=== PATIENT | male | born 1985 | race Caucasian/White ===

== ENCOUNTER 2016-09-23 16:49 | Emergency (ER) | payer MEDICAID, MEDICARE ==
[~2016-09-23] VITALS: Ht 182.9 cm; Wt 145.0 kg
[~2016-09-23 16:49] MED LIST: AMOX500T PO; AMOX875T PO; FLUT1SPR9 EACH NARE; HYDR-3533 PO; PROMSYP39 PO
[2016-09-23 16:51] VITALS: BP 153/99; PULSE 72; RESP 24; TEMP 97.8; O2SAT 99
[2016-09-23 17:00] VITALS: BP 133/77; PULSE 74; RESP 18; TEMP 97.8; O2SAT 98
[2016-09-23 17:11] VITALS: RESP 18; O2SAT 98
[2016-09-23] MEDS ORDERED: ONDANSETRON HCL 4 MG/2 ML VIAL IV ONE (17:15)
[2016-09-23] MEDS ORDERED: KETOROLAC TROMETHAMINE 30 MG/ML (IVP) VIAL IV PUSH ONE (17:15)
[2016-09-23] MEDS ORDERED: SODIUM CHLORIDE 0.9% FLUSH 10 ML FLUSH IVF PRN (17:15)
[2016-09-23 17:17] VITALS: BP_SYST 136; BP_SYST 141; BP_DIAS 87; BP_DIAS 96; PULSE 74; RESP 18; O2SAT 98
[2016-09-23 17:23] LABS: AUTOMATED NEUTROPHIL # 6.4 TH/MM3 (1.8-7.7); BASOPHIL # 0.1 TH/MM3 (0-0.2); BASOPHIL % 0.9 % (0.0-2.0); EOSINOPHIL # 0.2 TH/MM3 (0-0.4); EOSINOPHIL % 1.6 % (0.0-4.0); HEMATOCRIT 45.4 % (39.0-51.0); HEMO FLAGS DIFF FINAL; LYMPH % 27.4 % (9.0-44.0); LYMPHOCYTE # 2.8 TH/MM3 (1.0-4.8); MEAN CELL VOLUME 89.8 FL (80.0-100.0); MEAN CORPUSCULAR HEMOGLOBIN 29.6 PG (27.0-34.0); MONO % 7.5 % (0.0-8.0); NEUT % 62.6 % (16.0-70.0); PLATELET COUNT 229 TH/MM3 (150-450); RED BLOOD COUNT 5.06 MIL/MM3 (4.50-5.90); RED CELL DISTRIBUTION WIDTH 13.2 % (11.6-17.2); WHITE BLOOD COUNT 10.2 TH/MM3 (4.0-11.0)
--- NOTE | 2016-09-23 17:37 | RADRPT ---
EXAM DATE/TIME: 09/23/2016 17:22 [facility] COMPARISON: No previous studies available for comparison. INDICATIONS : Chest pain. MEDICAL HISTORY : None. SURGICAL HISTORY : None. ENCOUNTER: Initial ACUITY: 4 - 6 days PAIN SCORE: 5/10 LOCATION: lower center chest FINDINGS: There is a suboptimal inspiration. Minimal increased perihilar interstitial markings are noted consi stent with possible minimal congestion or crowding of the pulmonary vasculature related to suboptimal inspiration. Clinical correlation is recommended. No focal alveolar consolidation is noted. CONCLUSION: 1. Poor inspiration. 2. Minimal increased perihilar interstitial markings raising the possibility of minimal congestion ve rsus crowding of the pulmonary vasculature related to the suboptimal inspiration. Clinical correlati on is recommended. Abdiel Duncan MD on September 23, 2016 at 17:22 Board Certified Radiologist. This report was verified electronically.
[2016-09-23 17:46] LABS: ALT (GPT) 39 U/L (12-78); ANION GAP 6 MEQ/L (5-15); AST (GOT) 20 U/L (15-37); BICARBONATE 31.8 MEQ/L (21.0-32.0); BLOOD UREA NITROGEN 12 MG/DL (7-18); CHLORIDE 101 MEQ/L (98-107); GLOMERULAR FILTRATION RATE 106 ML/MIN (>89); POTASSIUM 4.3 MEQ/L (3.5-5.1); SODIUM (NA) 139 MEQ/L (136-145)
[2016-09-23 17:50] LABS: ALKALINE PHOSPHATASE 72 U/L (45-117); TOTAL BILIRUBIN ADULT 0.2 MG/DL (0.2-1.0)
--- NOTE | 2016-09-23 18:10 | PD ---
HPI Chief Complaint: Chest Pain Time Seen by Provider: 17:04 Travel History International Travel<30 days: No Contact w/Intl Traveler<30days: No Traveled to known affect area: No History of Present Illness HPI This is a 30-year-old male who presents to the emergency department with 1 week of chest discomfort described as a band across the front of his chest associated with nausea and some back pain. He says that he was working one week ago lifting heavy objects when he felt a pop in his back and he thought he herniated a disc. He reports that subsequently he developed this chest discomfort associated with some nausea. He says the chest pain is been intermittent initially but has been fairly constant over the past 24 hours. It is worse when he exerts himself and worse when he takes a deep breath. He denies any recent long trips or car rides. He says his father has had multiple heart attacks but he doesn't know what age he had his first heart attack. He denies smoking. PFSH Past Medical History Bipolar Disorder: Yes Anxiety: Yes Cardiovascular Problems: Yes Diminished Hearing: No Genitourinary: Yes (BLADDER SURGERY) Hypertension: Yes Musculoskeletal: Yes (CHRONIC BACK PAIN DDD BULGING DISCS) Psychiatric: Yes (BIPOLAR) Seizures: Yes (LAST 2 YEARS AGO.) Tetanus Vaccination: < 5 Years Influenza Vaccination: Yes Past Surgical History Genitourinary Surgery: Yes (BLADDER SURGERY DUE TO THICKENING OF WALL 2002) Social History Alcohol Use: Yes (OCCASIONAL) Tobacco Use: No Substance Use: No Allergies-Medications (Allergen,Severity, Reaction): Coded Allergies: Tramadol (Verified Adverse Reaction, Intermediate, SOB, TACHYCARDIA, PALPITATIONS, 09/23/16) Reported Meds & Prescriptions Reported Meds & Active Scripts Active No Active Prescriptions or Reported Medications Review of Systems Except as stated in HPI: all other systems reviewed are Neg Physical Exam Narrative GENERAL: Morbidly obese, disheveled SKIN: Focused skin assessment warm and dry. HEAD: Atraumatic. Normocephalic. EYES: Pupils equal and round. No injection or drainage. ENT: Moist mucous membranes NECK: Trachea midline. CARDIOVASCULAR: Regular rate and rhythm. No murmur appreciated. RESPIRATORY: Clear to auscultation. Breath sounds equal bilaterally. GASTROINTESTINAL: Abdomen soft, non-tender, nondistended. MUSCULOSKELETAL: No obvious deformities. NEUROLOGICAL: Awake and alert. No obvious cranial nerve deficits. Moving all extremities. PSYCHIATRIC: Appropriate mood and affect; insight and judgment normal. Data Data Last Documented VS Vital Signs Date Time Temp Pulse Resp B/P Pulse Ox O2 Delivery O2 Flow Rate FiO2 09/23/16 18:15 18 09/23/16 17:17 74 141/96 98 Room Air 136/87 09/23/16 17:00 97.8 Orders Electrocardiogram (09/23/16 17:10) B-Type Natriuretic Peptide (09/23/16 17:10) Complete Blood Count With Diff (09/23/16 17:10) Comprehensive Metabolic Panel (09/23/16 17:10) D-Dimer (09/23/16 17:10) Troponin I (09/23/16 17:10) Chest, Single Ap (09/23/16 17:10) Ecg Monitoring (09/23/16 17:10) Bilateral Bp Monitoring (09/23/16 17:10) Iv Access Insert/Monitor (09/23/16 17:10) Oximetry (09/23/16 17:10) Oxygen Administration (09/23/16 17:10) Sodium Chloride 0.9% Flush (Ns Flush) (09/23/16 17:15) Ondansetron Inj (Zofran Inj) (09/23/16 17:15) Ketorolac Inj (Toradol Inj) (09/23/16 17:15) Ct Pulmonary Angiogram (09/23/16 ) Iohexol 350 Inj (Omnipaque 350 Inj) (09/23/16 18:42) Labs Laboratory Tests Test 09/23/16 17:05 White Blood Count 10.2 TH/MM3 Red Blood Count 5.06 MIL/MM3 Hemoglobin 15.0 GM/DL Hematocrit 45.4 % Mean Corpuscular Volume 89.8 FL Mean Corpuscular Hemoglobin 29.6 PG Mean Corpuscular Hemoglobin 33.0 % Concent Red Cell Distribution Width 13.2 % Platelet Count 229 TH/MM3 Mean Platelet Volume 9.5 FL Neutrophils (%) (Auto) 62.6 % Lymphocytes (%) (Auto) 27.4 % Monocytes (%) (Auto) 7.5 % Eosinophils (%) (Auto) 1.6 % Basophils (%) (Auto) 0.9 % Neutrophils # (Auto) 6.4 TH/MM3 Lymphocytes # (Auto) 2.8 TH/MM3 Monocytes # (Auto) 0.8 TH/MM3 Eosinophils # (Auto) 0.2 TH/MM3 Basophils # (Auto) 0.1 TH/MM3 CBC Comment DIFF FINAL Differential Comment D-Dimer Quantitative (PE/DVT) 0.55 MG/L FEU Sodium Level 139 MEQ/L Potassium Level 4.3 MEQ/L Chloride Level 101 MEQ/L Carbon Dioxide Level 31.8 MEQ/L Anion Gap 6 MEQ/L Blood Urea Nitrogen 12 MG/DL Creatinine 0.85 MG/DL Estimat Glomerular Filtration 106 ML/MIN Rate Random Glucose 79 MG/DL Calcium Level 9.5 MG/DL Total Bilirubin 0.2 MG/DL Aspartate Amino Transf 20 U/L (AST/SGOT) Alanine Aminotransferase 39 U/L (ALT/SGPT) Alkaline Phosphatase 72 U/L Troponin I LESS THAN 0.02 NG/ML Total Protein 7.7 GM/DL Albumin 3.8 GM/DL MDM Medical Decision Making Medical Screen Exam Complete: Yes Emergency Medical Condition: Yes Interpretation(s) Afebrile, no tachycardia, hypertensive No leukocytosis Electrolytes are reassuring Troponin is normal D-dimer is 0.55 Last 24 hours Impressions Chest X-Ray 09/23/16 7380 Signed Impressions: Service Date/Time: Friday, September 23, 2016 17:22 - CONCLUSION: 1. Poor inspiration. 2. Minimal increased perihilar interstitial markings raising the possibility of minimal congestion versus crowding of the pulmonary vasculature related to the suboptimal inspiration. Clinical correlation is recommended. Abdiel Duncan MD CT pulmonary angiogram is reassuring Differential Diagnosis Acute coronary syndrome, musculoskeletal pain, pulmonary embolism, congestive heart failure, pericarditis, pneumonia Narrative Course This is a 30-year-old male who presents to the emergency department with chest discomfort and back pain that's been going on for 1 week and is worse with movement. His description of symptoms and physical exam suggests that this is musculoskeletal in nature however he does describe it as pleuritic and he is morbidly obese. He was placed on a monitor and an IV was established. EKG is nonspecific and troponin is reassuring. Patient symptoms have been constant for the last 24 hours so I doubt this reflects an acute coronary syndrome. D- dimer was slightly elevated so a CT pulmonary angiogram was obtained which was normal. Patient will be discharged with anti-inflammatories for likely costochondritis Diagnosis Primary Impression: Costochondritis Additional Impression: Musculoskeletal back pain Patient Instructions: General Instructions Additional Instructions: If you develop severe chest pain, shortness of breath, sweating, lightheadedness , dizziness or difficulty breathing return to the emergency department immediately. Followup with your primary care physician in 2-3 days if your symptoms are not resolved. Med/Other Pt SpecificInfo: Prescription(s) given Scripts Naproxen 500 Mg [id number] Mg PO BID PRN (PAIN SCALE 4 TO 10) #20 TAB Prov:Vijaya Carrasco MD 09/23/16 Disposition: 01 DISCHARGE HOME Condition: Stable Vijaya Carrasco MD September 23, 2016 18:10
[2016-09-23 18:15] VITALS: RESP 18
[2016-09-23] MEDS ORDERED: IOHEXOL 350 MG/ML 10 ML VIAL (for RAD DIAG) IV ONE (18:42)
--- NOTE | 2016-09-23 18:44 | RADRPT ---
EXAM DATE/TIME: 09/23/2016 18:24 [facility] COMPARISON: No previous studies available for comparison. INDICATIONS : Chest pain with shortness of breath. IV CONTRAST: 100 cc Omnipaque 350 (iohexol) IV RADIATION DOSE: 25.67 CTDIvol (mGy) MEDICAL HISTORY : Cardiovascular disease. Hypertension. SURGICAL HISTORY : None. ENCOUNTER: Initial ACUITY: 1 day PAIN SCALE: 6/10 LOCATION: Bilateral chest TECHNIQUE: Volumetric scanning of the chest was performed using a pulmonary embolism protocol MIP images were re constructed. Using automated exposure control and adjustment of the mA and/or kV according to patien t size, radiation dose was kept as low as reasonably achievable to obtain optimal diagnostic quality images. FINDINGS: PULMONARY ARTERIES: No filling defects are seen in the pulmonary arteries through the segmental level. LUNGS: There is no consolidation or pneumothorax . No concerning pulmonary nodule is visualized. PLEURAE: There is no pleural thickening or pleural effusion. MEDIASTINUM: There is good visualization of the great vessels of the middle mediastinum. No evidence of mediastin al or hilar adenopathy/mass. Moderate size hiatal hernia is noted. MUSCULOSKELETAL: Within normal limits for patient age. MISCELLANEOUS: The visualized upper abdominal organs demonstrate no acute abnormality. CONCLUSION: No evidence of pulmonary embolism. Flakito Conte MD on September 23, 2016 at 18:39 Board Certified Radiologist. This report was verified electronically.
[2016-09-23] MEDS ORDERED: NAPR500T PO (18:48)
[2016-09-23 19:45] VITALS: BP 137/88
--- NOTE | 2016-09-24 08:21 | EKG ---
Date Performed: 09/23/2016 Time Performed: 16:59:57 PTAGE: 30 years EKG: Sinus rhythm WITH MARKED SINUS ARRHYTHMIA BORDERLINE ECG PREVIOUS TRACING : 07/14/2013 13.16 No significant change from previous tracing noted. DOCTOR: Dax Lunsford Interpretating Date/Time 09/24/2016 08:20:53
== END 2016-09-23 19:54 | disposition home or self-care (01) ==
LOC: NEPE 16:49
DX: M94.0 Chondrocostal junction syndrome [Tietze] (principal); R11.0 Nausea; I10 Essential (primary) hypertension; R94.31 Abnormal electrocardiogram [ECG] [EKG]; M54.9 Dorsalgia, unspecified
CPT/HCPCS: 71010; 71275; 80053; 83880; 84484; 85025; 85379; 93005; 96374; 96375; 99285; J1885; J2405; Q9967

== ENCOUNTER 2017-02-11 16:25 | Emergency (ER) | payer MEDICARE, MEDICAID ==
[~2017-02-11] VITALS: Ht 182.9 cm; Wt 150.0 kg
[~2017-02-11 16:25] MED LIST changes: -AMOX500T PO; -AMOX875T PO; -FLUT1SPR9 EACH NARE; -HYDR-3533 PO; +NAPR500T PO; -PROMSYP39 PO
[2017-02-11 16:30] VITALS: BP 152/89; PULSE 83; RESP 20; TEMP 98.5; O2SAT 97
[2017-02-11] MEDS ORDERED: IBUP800T23 PO (16:59)
[2017-02-11] MEDS ORDERED: PERI0.126 SWISH-SPIT (16:59)
[2017-02-11] MEDS ORDERED: PENI500T PO (16:59)
--- NOTE | 2017-02-11 16:59 | PD ---
HPI Chief Complaint: Oral / Dental Pain or Problem Time Seen by Provider: 16:47 Travel History International Travel<30 days: No Contact w/Intl Traveler<30days: No Traveled to known affect area: No History of Present Illness HPI 31 year old male presents to the ED for evaluation of right sided tooth pain. This has been ongoing for the last two days with no preceding injury. States the pain is constant and throbbing;6/10 radiates to his cheek and ear. No fever or chills. He feels like his face may be swollen. Denies any difficulty chewing or swallowing. No other symptoms to report. PFSH Past Medical History Bipolar Disorder: Yes Anxiety: Yes Cardiovascular Problems: Yes Diminished Hearing: No Genitourinary: Yes (BLADDER SURGERY) Hypertension: Yes Musculoskeletal: Yes (CHRONIC BACK PAIN DDD BULGING DISCS) Psychiatric: Yes (BIPOLAR) Seizures: Yes (LAST 2 YEARS AGO.) Past Surgical History Genitourinary Surgery: Yes (BLADDER SURGERY DUE TO THICKENING OF WALL 2001) Social History Alcohol Use: Yes (OCCASIONAL) Tobacco Use: No Substance Use: No Allergies-Medications (Allergen,Severity, Reaction): Coded Allergies: tramadol (Verified Adverse Reaction, Intermediate, SOB, TACHYCARDIA, PALPITATIONS, 02/11/17) Reported Meds & Prescriptions Reported Meds & Active Scripts Active Peridex Liq (Chlorhexidine Gluconate (Mouth) Liq) 0.12% Soln 15 Ml SWISH-SPIT BID Penicillin V Potassium 500 Mg Tab 500 Mg PO Q6H 10 Days Ibuprofen 800 Mg Tab 800 Mg PO Q8H PRN Naproxen 500 Mg Tab 500 Mg PO BID PRN Review of Systems Except as stated in HPI: all other systems reviewed are Neg Physical Exam Narrative GENERAL: Well nourished male patient ambulatory and in no acute distress SKIN: Warm and dry. HEAD: Normocephalic. Very mild edema of the right cheek; no erythema. No induration or fluctuation EYES: No scleral icterus. No injection or drainage. DENTAL: Pt has a large dental abner of the right mandibular 1st molar. No broken or chipped teeth. There is associated gingival erythema and edema. No appreciable abscess NECK: Supple, trachea midline. No JVD or lymphadenopathy. CARDIOVASCULAR: Regular rate and rhythm without murmurs, gallops, or rubs. RESPIRATORY: Breath sounds equal bilaterally. No accessory muscle use MUSCULOSKELETAL: No cyanosis, or edema. BACK: without obvious deformity. Data Data Last Documented VS Vital Signs Date Time Temp Pulse Resp B/P (MAP) Pulse Ox O2 Delivery O2 Flow Rate FiO2 02/11/17 17:05 02/11/17 16:30 98.5 83 20 97 Room Air Orders Orders Ed Discharge Order (02/11/17 17:00) MDM Medical Decision Making Medical Screen Exam Complete: Yes Emergency Medical Condition: Yes Medical Record Reviewed: Yes Differential Diagnosis dental caries vs dental abscess vs gingivitis vs pulpitis Narrative Course 31 year old male presents to the eD for evaluation of right sided dental pain. Pt has a large dental abner of the right maxillary 1st molar with associated gingivitis, but no appreciable abscess. PT will be started on pen vk and provided pain control. He is encouraged to follow up with a dentist and a primary care provider. He agrees to return immediately with acute worsening of symptoms Diagnosis Primary Impression: Dentalgia Additional Impressions: Dental caries Gingivitis Referrals: Dentist Patient Instructions: Dental Caries (ED), General Instructions Additional Instructions: Seek dental evaluation Follow-up with primary care provider Return immediately with any acute worsening of symptoms Med/Other Pt SpecificInfo: Prescription(s) given Scripts Chlorhexidine Gluconate (Mouth) Liq (Peridex Liq) 0.12% Soln 15 ML SWISH-SPIT BID, #473 ML 0 Refills Prov: Penny Matute 02/11/17 Penicillin V Potassium (Penicillin V Potassium) 500 Mg Tab 500 MG PO Q6H for Infection for 10 Days, #40 TAB 0 Refills Prov: Penny Matute 02/11/17 Ibuprofen (Ibuprofen) 800 Mg Tab 800 MG PO Q8H Y for Pain/Inflammation, #30 TAB 0 Refills Prov: Penny Matute 02/11/17 Disposition: 01 DISCHARGE HOME Condition: Stable Penny Matute Feb 11, 2017 16:59
== END 2017-02-11 17:29 | disposition home or self-care (01) ==
LOC: NEPK 16:25
DX: K08.89 Other specified disorders of teeth and supporting structures (principal); K05.10 Chronic gingivitis, plaque induced; K02.9 Dental caries, unspecified; I10 Essential (primary) hypertension
CPT/HCPCS: 99284

== ENCOUNTER 2017-03-14 10:37 | Emergency (ER) | payer MEDICARE, MEDICAID ==
[~2017-03-14] VITALS: Ht 182.9 cm; Wt 149.5 kg
[~2017-03-14 10:37] MED LIST changes: +IBUP1TAB7 PO; -NAPR500T PO; +NAPR500T2 PO; +PENI500T PO; +PERI0.126 SWISH-SPIT
[2017-03-14] MEDS ORDERED: IOHEXOL 350 MG/ML 10 ML VIAL (for RAD DIAG) IVCONTRAST ONE (10:38)
[2017-03-14 10:40] VITALS: BP 140/89; PULSE 86; RESP 16; TEMP 98.7; O2SAT 99
[2017-03-14] MEDS ORDERED: ACETAMINOPHEN/HYDROcodone 325 MG/5 MG TAB PO ONE (12:00)
[2017-03-14] MEDS ORDERED: SODIUM CHLORIDE 0.9% FLUSH 10 ML FLUSH IVF PRN (12:00)
--- NOTE | 2017-03-14 12:12 | PD ---
HPI Chief Complaint: Back/ Neck Pain or Injury Time Seen by Provider: 11:39 Travel History International Travel<30 days: No Contact w/Intl Traveler<30days: No Traveled to known affect area: No History of Present Illness HPI 31-year-old male presents to the emergency room for evaluation of 2 separate complaints the patient believes are related. States one week ago today, he tripped backwards and hit his lower back against a guard rail. That night, he had a bowel movement with significant amount of bleeding. He has never had bleeding like that before. He showed pictures of 2 separate bowel movements which revealed extremely large amounts of bright red blood. Associated fatigue over the past week. Patient states he has been taking large amounts of ibuprofen, naproxen, Aleve, and Excedrin without significant relief and back pain. He denies any significant abdominal pain, pain with defecation, nausea, vomiting, fever, chills, dysuria, urgency, frequency, or hematuria. Denies any other medical conditions or daily medications. Father was recently diagnosed with colon cancer. He denies upper or lower extremity paresthesias, saddle anesthesia, or loss of bowel or bladder control. PFSH Past Medical History Bipolar Disorder: Yes Anxiety: Yes Cardiovascular Problems: Yes Diabetes: No (SELF DIAGNOSED. HIS HANDS TREMBLE AND HIS PARENTS WERE DIABETICS WITH TREMB) Diminished Hearing: No Genitourinary: Yes (BLADDER SURGERY) Hypertension: Yes Musculoskeletal: Yes (CHRONIC BACK PAIN DDD BULGING DISCS) Psychiatric: Yes (BIPOLAR) Immunizations Current: No Seizures: Yes (LAST 2 YEARS AGO.) Tetanus Vaccination: > 5 Years Influenza Vaccination: No Past Surgical History Genitourinary Surgery: Yes (BLADDER SURGERY DUE TO THICKENING OF WALL 2001) Social History Alcohol Use: Yes (OCCASIONAL) Tobacco Use: No Substance Use: No Allergies-Medications (Allergen,Severity, Reaction): Coded Allergies: tramadol (Verified Adverse Reaction, Intermediate, SOB, TACHYCARDIA, PALPITATIONS, 03/14/17) Reported Meds & Prescriptions Reported Meds & Active Scripts Active Robaxin (Methocarbamol) 750 Mg Tab 750 Mg PO Q8HR Ibuprofen 800 Mg Tab 800 Mg PO Q8H PRN Naproxen 500 Mg Tab 500 Mg PO BID PRN Review of Systems Except as stated in HPI: all other systems reviewed are Neg Physical Exam Narrative GENERAL: Well-nourished, morbidly obese male in no acute distress. Afebrile. Ambulatory with antalgic gait. SKIN: Focused skin assessment warm/dry. HEAD: Normocephalic. EYES: No scleral icterus. No injection or drainage. NECK: Supple, trachea midline. No JVD or lymphadenopathy. CARDIOVASCULAR: Regular rate and rhythm without murmurs, gallops, or rubs. RESPIRATORY: Breath sounds equal bilaterally. No accessory muscle use. GASTROINTESTINAL: Abdomen soft, non-tender, nondistended. BACK: No obvious deformity. No CVA tenderness. Mild tenderness to palpation of the right lower lumbar region and SI joint. RECTAL EXAM: Examined in the presence of a nurse. No masses or tenderness, stool is brown. Data Data Last Documented VS Vital Signs Date Time Temp Pulse Resp B/P (MAP) Pulse Ox O2 Delivery O2 Flow Rate FiO2 03/14/17 12:54 69 20 118/89 (99) 99 Room Air 03/14/17 10:40 98.7 Orders Orders Complete Blood Count With Diff (03/14/17 11:52) Comprehensive Metabolic Panel (03/14/17 11:52) Prothrombin Time / Inr (Pt) (03/14/17 11:52) Act Partial Throm Time (Ptt) (03/14/17 11:52) Type And Screen (03/14/17 11:52) Ecg Monitoring (03/14/17 11:52) Iv Access Insert/Monitor (03/14/17 11:52) Oximetry (03/14/17 11:52) Sodium Chloride 0.9% Flush (Ns Flush) (03/14/17 12:00) Acetamin-Hydrocod 325-5 Mg ([place] 5-325 (03/14/17 12:00) Ct Abd/Pel W Iv Contrast(Rout) (03/14/17 ) Iohexol 350 Inj (Omnipaque 350 Inj) (03/14/17 10:38) Diazepam (Valium) (03/14/17 14:45) Ed Discharge Order (03/14/17 14:44) Labs Laboratory Tests Test 03/14/17 12:44 White Blood Count 6.1 TH/MM3 Red Blood Count 4.54 MIL/MM3 Hemoglobin 14.3 GM/DL Hematocrit 40.7 % Mean Corpuscular Volume 89.8 FL Mean Corpuscular Hemoglobin 31.6 PG Mean Corpuscular Hemoglobin Concent 35.1 % Red Cell Distribution Width 14.2 % Platelet Count 192 TH/MM3 Mean Platelet Volume 9.2 FL Neutrophils (%) (Auto) 60.6 % Lymphocytes (%) (Auto) 27.5 % Monocytes (%) (Auto) 9.1 % Eosinophils (%) (Auto) 1.9 % Basophils (%) (Auto) 0.9 % Neutrophils # (Auto) 3.7 TH/MM3 Lymphocytes # (Auto) 1.7 TH/MM3 Monocytes # (Auto) 0.6 TH/MM3 Eosinophils # (Auto) 0.1 TH/MM3 Basophils # (Auto) 0.1 TH/MM3 CBC Comment DIFF FINAL Differential Comment Prothrombin Time 10.2 SEC Prothromb Time International Ratio 0.9 RATIO Activated Partial Thromboplast Time 27.8 SEC Blood Urea Nitrogen 9 MG/DL Creatinine 0.89 MG/DL Random Glucose 82 MG/DL Total Protein 7.3 GM/DL Albumin 3.6 GM/DL Calcium Level 8.6 MG/DL Alkaline Phosphatase 79 U/L Aspartate Amino Transf (AST/SGOT) 20 U/L Alanine Aminotransferase (ALT/SGPT) 42 U/L Total Bilirubin 0.4 MG/DL Sodium Level 139 MEQ/L Potassium Level 4.2 MEQ/L Chloride Level 104 MEQ/L Carbon Dioxide Level 29.5 MEQ/L Anion Gap 6 MEQ/L Estimat Glomerular Filtration Rate 100 ML/MIN MDM Medical Decision Making Medical Screen Exam Complete: Yes Emergency Medical Condition: Yes Medical Record Reviewed: Yes Differential Diagnosis Lower GI bleed, diverticulosis, hemorrhoids, sciatica, muscle strain, muscle spasm, SI joint dysfunction Narrative Course 31-year-old male presents to the emergency room for evaluation of 2 separate complaints that he believes are related. Complaints include right sided low back pain for the past week after striking his back against a guard rail. Second complaint is bright red blood in his stool for the past week. Patient has associated fatigue but denies any other symptoms. He is afebrile and well- appearing in the emergency room. Vital signs stable. IV established and basic labs obtained. CBC and CMP are unremarkable. Patient is morbidly obese but his abdomen is essentially benign. Rectal exam shows no masses or bright red blood. Hemoccult very slightly positive. CT shows 1.5 cm node at the GE junction and old compression fracture. Compression fracture does not correlate with the location of patient's pain as his pain is more in the right-sided SI joint. Patient will be given copy of CT. Patient was told to follow-up with a component lab tech for outpatient colonoscopy. He was discharged with prescription for Robaxin and told not to operate heavy machinery while using it. Told to return for worsening symptoms. He understands and agrees to plan. [employer] Point of Care Internal Pos. & Neg. Controls: Passed Fecal Specimen Occult Blood: Positive Diagnosis Primary Impression: Nodule of esophagus Additional Impressions: Rectal bleeding Low back pain Qualified Codes: M54.41 - Lumbago with sciatica, right side Referrals: Vipin De Paz MD [facility] [employer] Additional Instructions: Rest and drink plenty of fluids. Take Robaxin as directed, as needed for pain. Apply ice to the affected area for 20 minutes at a time, as needed for pain and swelling. Follow-up with a primary care physician for referral to component lab tech. You will need a colonoscopy given your father's history of colon cancer. Return to the emergency room for worsening symptoms. Scripts Methocarbamol (Robaxin) 750 Mg Tab 750 MG PO Q8HR for Muscle Spasm, #15 TAB 0 Refills Prov: Jessica Carmona DO 03/14/17 Disposition: 01 DISCHARGE HOME Condition: Stable Gianna Randle Mar 14, 2017 12:11
[2017-03-14 12:52] LABS: AUTOMATED NEUTROPHIL # 3.7 TH/MM3 (1.8-7.7); BASOPHIL # 0.1 TH/MM3 (0-0.2); BASOPHIL % 0.9 % (0.0-2.0); EOSINOPHIL # 0.1 TH/MM3 (0-0.4); EOSINOPHIL % 1.9 % (0.0-4.0); HEMATOCRIT 40.7 % (39.0-51.0); HEMO FLAGS DIFF FINAL; LYMPH % 27.5 % (9.0-44.0); LYMPHOCYTE # 1.7 TH/MM3 (1.0-4.8); MEAN CELL VOLUME 89.8 FL (80.0-100.0); MEAN CORPUSCULAR HEMOGLOBIN 31.6 PG (27.0-34.0); MEAN CORPUSCULAR HGB CONC 35.1 % (32.0-36.0); MONO % 9.1 % (0.0-8.0); NEUT % 60.6 % (16.0-70.0); PLATELET COUNT 192 TH/MM3 (150-450); RED BLOOD COUNT 4.54 MIL/MM3 (4.50-5.90); RED CELL DISTRIBUTION WIDTH 14.2 % (11.6-17.2); WHITE BLOOD COUNT 6.1 TH/MM3 (4.0-11.0)
[2017-03-14 12:54] VITALS: BP 118/89; PULSE 69; RESP 20; O2SAT 99
[2017-03-14 13:01] LABS: APTT (PATIENT) 27.8 SEC (24.3-30.1); INTERNATIONAL NORMALIZED RATIO 0.9 RATIO; PROTHROMBIN TIME - PATIENT 10.2 SEC (9.8-11.6)
[2017-03-14 13:09] LABS: ALT (GPT) 42 U/L (12-78); ANION GAP 6 MEQ/L (5-15); AST (GOT) 20 U/L (15-37); BICARBONATE 29.5 MEQ/L (21.0-32.0); BLOOD UREA NITROGEN 9 MG/DL (7-18); CHLORIDE 104 MEQ/L (98-107); GLOMERULAR FILTRATION RATE 100 ML/MIN (>89); POTASSIUM 4.2 MEQ/L (3.5-5.1); SODIUM (NA) 139 MEQ/L (136-145)
[2017-03-14 13:11] LABS: ALKALINE PHOSPHATASE 79 U/L (45-117); TOTAL BILIRUBIN ADULT 0.4 MG/DL (0.2-1.0)
--- NOTE | 2017-03-14 14:11 | RADRPT ---
EXAM DATE/TIME: 03/14/2017 13:47 [facility] COMPARISON: CT PULMONARY ANGIOGRAM, September 23, 2016, 18:24. INDICATIONS : Fall, blood in stool. Lower back pain IV CONTRAST: 97 cc Omnipaque 350 (iohexol) IV ORAL CONTRAST: No oral contrast ingested. RADIATION DOSE: 22.68 CTDIvol (mGy) MEDICAL HISTORY : Hypertension. TB. SURGICAL HISTORY : Bladder. ENCOUNTER: Initial ACUITY: 1 week PAIN SCALE: 7/10 LOCATION: lower abdomen. TECHNIQUE: Volumetric scanning of the abdomen and pelvis was performed. Using automated exposure control and ad justment of the mA and/or kV according to patient size, radiation dose was kept as low as reasonably achievable to obtain optimal diagnostic quality images. DICOM format image data is available electro nically for review and comparison. FINDINGS: The limited portion of the lung base visualized is clear. The examination demonstrates a hiatal hernia. Note is made of a 1.5 cm node at the level of the GE ju nction. There does appear to be some subtle thickening of the distal esophagus as well. Endoscopy may be of benefit for more definitive assessment of this. The appearance of the liver, spleen, pancreas, adrenal glands and kidneys is within normal limits. The visualized loops of small large bowel in the upper abdomen are unremarkable. There is no free fluid within the pelvis. No iliac or inguinal adenopathy is seen. The loops of small large bowel within the pelvis are unremarkable. The osseous structures demonstrate old compression fractures of the inferior endplate of T11 and the superior endplate of T12. No destructive lesion is seen. CONCLUSION: 1. The appearance of the gastroesophageal junction is abnormal. There is a 1.5 cm node adjacent to th is area. Endoscopy is warranted for further assessment. 2. The exam demonstrates mild compression fractures of T11 and T12. I believe this may be old as ther e is osteophytic spurring associated with this. This should be correlated as to site of patient's cinthia n. Romeo Bhatti MD on March 14, 2017 at 13:58 Board Certified Radiologist. This report was verified electronically.
[2017-03-14] MEDS ORDERED: ROBA750T PO (14:44)
[2017-03-14] MEDS ORDERED: DIAZEPAM 5 MG TAB PO ONE (14:45)
--- NOTE | 2017-03-14 14:48 | PD ---
Physical Exam Narrative I, Dr. Carmona, have reviewed the advance practice practitioner's documentation and am in agreement, met with the patient face to face, made the diagnosis, and the medical decision making was done by me. *My assessment and Findings: Musculoskeletal pain vs. fracture vs. colitis 31yo M with 2 complaints. Pt fell 1 week ago and pain is in the right buttocks , SI joint region. No focal neurologic deficits. No urinary incontinence. He also has blood in stool for 1 week. Denies any nausea, vomiting. Labs reviewed , no leukocytosis. H/H normal at 14.3/40.7. CMP unremarkable. CT a/p showed that appearance of gastroesophageal junction is abnormal. There is a 1.5cm node adjacent to this area. Endoscopy is warranted for further assessment. Pt informed of this and will follow up with GI as outpatient. Also found mild compression fractures of T11 and T12. Believe this is old as there is osteophytic spurring associated with this. Pt has no pain in T11 or T12 on exam and I believe this is old as well. Vital signs have been normal. Pt is well appearing and can follow up with GI as outpatient. Pt given lortab and valium with improvement of pain. Return precautions given. Data Data Last Documented VS Vital Signs Date Time Temp Pulse Resp B/P (MAP) Pulse Ox O2 Delivery O2 Flow Rate FiO2 03/14/17 12:54 69 20 118/89 (99) 99 Room Air 03/14/17 10:40 98.7 Orders Orders Complete Blood Count With Diff (03/14/17 11:52) Comprehensive Metabolic Panel (03/14/17 11:52) Prothrombin Time / Inr (Pt) (03/14/17 11:52) Act Partial Throm Time (Ptt) (03/14/17 11:52) Type And Screen (03/14/17 11:52) Ecg Monitoring (03/14/17 11:52) Iv Access Insert/Monitor (03/14/17 11:52) Oximetry (03/14/17 11:52) Sodium Chloride 0.9% Flush (Ns Flush) (03/14/17 12:00) Acetamin-Hydrocod 325-5 Mg ([place] 5-325 (03/14/17 12:00) Ct Abd/Pel W Iv Contrast(Rout) (03/14/17 ) Iohexol 350 Inj (Omnipaque 350 Inj) (03/14/17 10:38) Diazepam (Valium) (03/14/17 14:45) Labs Laboratory Tests Test 03/14/17 12:44 White Blood Count 6.1 TH/MM3 Red Blood Count 4.54 MIL/MM3 Hemoglobin 14.3 GM/DL Hematocrit 40.7 % Mean Corpuscular Volume 89.8 FL Mean Corpuscular Hemoglobin 31.6 PG Mean Corpuscular Hemoglobin Concent 35.1 % Red Cell Distribution Width 14.2 % Platelet Count 192 TH/MM3 Mean Platelet Volume 9.2 FL Neutrophils (%) (Auto) 60.6 % Lymphocytes (%) (Auto) 27.5 % Monocytes (%) (Auto) 9.1 % Eosinophils (%) (Auto) 1.9 % Basophils (%) (Auto) 0.9 % Neutrophils # (Auto) 3.7 TH/MM3 Lymphocytes # (Auto) 1.7 TH/MM3 Monocytes # (Auto) 0.6 TH/MM3 Eosinophils # (Auto) 0.1 TH/MM3 Basophils # (Auto) 0.1 TH/MM3 CBC Comment DIFF FINAL Differential Comment Prothrombin Time 10.2 SEC Prothromb Time International Ratio 0.9 RATIO Activated Partial Thromboplast Time 27.8 SEC Blood Urea Nitrogen 9 MG/DL Creatinine 0.89 MG/DL Random Glucose 82 MG/DL Total Protein 7.3 GM/DL Albumin 3.6 GM/DL Calcium Level 8.6 MG/DL Alkaline Phosphatase 79 U/L Aspartate Amino Transf (AST/SGOT) 20 U/L Alanine Aminotransferase (ALT/SGPT) 42 U/L Total Bilirubin 0.4 MG/DL Sodium Level 139 MEQ/L Potassium Level 4.2 MEQ/L Chloride Level 104 MEQ/L Carbon Dioxide Level 29.5 MEQ/L Anion Gap 6 MEQ/L Estimat Glomerular Filtration Rate 100 ML/MIN [facility] Supervised Visit with SUSANNA: Yes Diagnosis Primary Impression: Musculoskeletal back pain Referrals: [facility] Entry Level Sales Representative Additional Instruction: Rest and drink plenty of fluids. Take Robaxin as directed, as needed for pain. Apply ice to the affected area for 20 minutes at a time, as needed for pain and swelling. Follow-up with a primary care physician for referral to licensed occupational therapist. You will need a colonoscopy given your father's history of colon cancer. Return to the emergency room for worsening symptoms. Carmona,Jessica DO Mar 14, 2017 14:48
== END 2017-03-14 15:59 | disposition home or self-care (01) ==
LOC: NEPD 10:37
DX: K62.5 Hemorrhage of anus and rectum (principal); M54.41 Lumbago with sciatica, right side; R93.8 Abnormal findings on diagnostic imaging of other specified body structures
CPT/HCPCS: 74177; 80053; 85025; 85610; 85730; 86850; 86900; 86901; 99285; Q9967

== ENCOUNTER 2017-03-17 14:08 | Emergency (ER) | payer MEDICARE, MEDICAID ==
[~2017-03-17] VITALS: Ht 182.9 cm; Wt 100.0 kg
[~2017-03-17 14:08] MED LIST changes: -PENI500T PO; -PERI0.126 SWISH-SPIT; +ROBA750T PO
[2017-03-17 14:11] VITALS: BP 135/80; PULSE 91; RESP 18; TEMP 98.3; O2SAT 98
--- NOTE | 2017-03-17 15:33 | PD ---
HPI Chief Complaint: GI Complaint Time Seen by Provider: 14:44 Travel History International Travel<30 days: No Contact w/Intl Traveler<30days: No Traveled to known affect area: No History of Present Illness HPI This is a 31-year-old male who presents to the emergency department with constipation present for 3 days. He says he strains and pushes any feels something at his rectum but he can't push it out. He also says he has right sided low back pain, constant, moderate severity, worse with walking improved with rest. He denies any saddle anesthesia, any weakness, but he does report some numbness in the right leg. He was seen here 3 days ago in the emergency department and told he has some abnormality at the GE junction. He had been in for rectal bleeding. He has made an appointment with a director agency & strategic partnerships. He also was found to have possible old compression fractures at T10 and T11. These were mild height loss. He was referred to [facility] for follow-up. PFSH Past Medical History Bipolar Disorder: Yes Anxiety: Yes Cardiovascular Problems: Yes Diabetes: No Diminished Hearing: No Genitourinary: Yes (BLADDER SURGERY) Hypertension: Yes Musculoskeletal: Yes (CHRONIC BACK PAIN DDD BULGING DISCS) Psychiatric: Yes (BIPOLAR) Immunizations Current: No Seizures: Yes (LAST 2 YEARS AGO.) Tetanus Vaccination: > 5 Years Past Surgical History Genitourinary Surgery: Yes (BLADDER SURGERY DUE TO THICKENING OF WALL 2002) Social History Alcohol Use: Yes (OCCASIONAL) Tobacco Use: No Substance Use: No Allergies-Medications (Allergen,Severity, Reaction): Coded Allergies: tramadol (Verified Adverse Reaction, Intermediate, SOB, TACHYCARDIA, PALPITATIONS, 03/17/17) Reported Meds & Prescriptions Reported Meds & Active Scripts Active Robaxin (Methocarbamol) 750 Mg Tab 750 Mg PO Q8HR Ibuprofen 800 Mg Tab 800 Mg PO Q8H PRN Naproxen 500 Mg Tab 500 Mg PO BID PRN Review of Systems Except as stated in HPI: all other systems reviewed are Neg Physical Exam Narrative GENERAL:Well appearing, no acute distress SKIN: Focused skin assessment warm and dry. HEAD: Atraumatic. Normocephalic. EYES: Pupils equal and round. No injection or drainage. ENT: Moist mucous membranes NECK: Trachea midline. CARDIOVASCULAR: Regular rate and rhythm. No murmur appreciated. RESPIRATORY: Clear to auscultation. Breath sounds equal bilaterally. GASTROINTESTINAL: Abdomen soft, non-tender, nondistended. Fecal ball appreciated at the rectum MUSCULOSKELETAL: Tender to palpation in the lower thoracic and lower lumbar spine. NEUROLOGICAL: Awake and alert. No obvious cranial nerve deficits. 5 out of 5 strength in the bilateral lower extremities. Normal rectal tone PSYCHIATRIC: Appropriate mood and affect; insight and judgment normal. Data Data Last Documented VS Vital Signs Date Time Temp Pulse Resp B/P (MAP) Pulse Ox O2 Delivery O2 Flow Rate FiO2 03/17/17 14:11 98.3 91 18 135/80 (98) 98 Room Air MDM Medical Decision Making Medical Screen Exam Complete: Yes Emergency Medical Condition: Yes Differential Diagnosis sciatica, compression fracture, constipation, spinal cord compression Narrative Course This is a 31-year-old male who presents to the emergency department with refractory pain in the setting of a T10-T11 possible mild compression fracture as well as severe constipation. He was seen 3 days ago and discharged with a GI referral and [facility] which she says is not working for his pain. I did perform a rectal exam which demonstrated normal rectal tone so I don't suspect a spinal cord compression or cauda equina syndrome. Patient does have a fecal impaction. He will be prescribed a suppository and he was told if that doesn't work to use an enema. He was also prescribed magnesium citrate. I'll prescribe prednisone for his back pain. I'm hesitant to give him any opiates but this can worsen his constipation. He will follow up with his [facility] to try to obtain a referral to a neurosurgeon or orthopedic surgeon for his back. Diagnosis Primary Impression: Radiculopathy Qualified Codes: M54.14 - Radiculopathy, thoracic region Additional Impression: Constipation Qualified Codes: K59.00 - Constipation, unspecified Patient Instructions: General Instructions Additional Instructions: If you develop weakness of your legs, difficulty walking, numbness of your legs or your genital or rectal area, loss of your bowel or bladder, or difficulty urinating return to the emergency department immediately. Followup with your primary care physician in one week if your symptoms have not improved. Use a suppository for constipation. If this doesn't work use an enema. Take magnesium citrate to assist with her bowel movements. Complete your steroid dosepak. Follow-up with [facility] to try to obtain a referral with a neurosurgeon or orthopedic surgeon regarding your back. Follow-up with your GI doctor at your scheduled appointment. Med/Other Pt SpecificInfo: Prescription(s) given Scripts Magnesium Citrate Liq (Magnesium Citrate Liq) 300 Ml Liq 300 ML PO ONCE, #1 BOTTLE 0 Refills Prov: Vijaya Carrasco MD 03/17/17 Mineral Oil Enema (Mineral Oil Enema) 118 Ml Enem 1 EA RECTAL ONCE for Constipation, #1 BOTTLE 0 Refills Prov: Vijaya Carrasco MD 03/17/17 Bisacodyl Supp (Dulcolax Supp) 10 Mg Supp 10 MG RECTAL DAILY Y for CONSTIPATION, #12 SUPP 0 Refills Prov: Vijaya Carrasco MD 03/17/17 Methylprednisolone Dosepak (Medrol Dosepak) 4 Mg Dspk 4 MG PO DIRECTED, #1 DSPK 0 Refills Per Pharmacist direction Prov: Vijaya Carrasco MD 03/17/17 Disposition: 01 DISCHARGE HOME Condition: Stable Vijaya Carrasco MD Mar 17, 2017 15:33
[2017-03-17] MEDS ORDERED: MAGNSOL2 PO (15:53)
[2017-03-17] MEDS ORDERED: DULC10SU3 RECTAL (15:53)
[2017-03-17] MEDS ORDERED: ENEMENE6 RECTAL (15:53)
[2017-03-17] MEDS ORDERED: MEDR4PAK PO (15:53)
== END 2017-03-17 16:07 | disposition home or self-care (01) ==
LOC: NEPK 14:08
DX: M54.14 Radiculopathy, thoracic region (principal); K59.00 Constipation, unspecified; R20.0 Anesthesia of skin; F31.9 Bipolar disorder, unspecified; I10 Essential (primary) hypertension; R56.9 Unspecified convulsions; F41.9 Anxiety disorder, unspecified
CPT/HCPCS: 99284

== ENCOUNTER 2017-05-26 18:30 | Emergency (ER) | payer MEDICARE, MEDICAID ==
[~2017-05-26] VITALS: Ht 195.6 cm; Wt 152.3 kg
[~2017-05-26 18:30] MED LIST changes: +DULC10SU3 RECTAL; +ENEMENE6 RECTAL; +MAGNSOL2 PO; +MEDR4PAK PO
[2017-05-26 18:33] VITALS: BP 126/71; PULSE 84; RESP 24; TEMP 98.9; O2SAT 99
--- NOTE | 2017-05-26 19:18 | RADRPT ---
EXAM DATE/TIME: 05/26/2017 18:51 [facility] COMPARISON: CHEST PA & LAT, August 29, 2011, 2:25. INDICATIONS : Chest pain. MEDICAL HISTORY : Hypertension. TB. SURGICAL HISTORY : None. ENCOUNTER: Initial ACUITY: 1 day PAIN SCORE: 10/10 LOCATION: Bilateral chest FINDINGS: There is a poor inspiratory result. Mild increased perihilar interstitial markings are noted consiste nt with possible mild pulmonary vascular congestion or pneumonitis. Clinical correlation is recommend ed. The heart is normal. CONCLUSION: Mild increased perihilar interstitial markings are noted consistent with possible mild pulmonary vasc ular congestion or pneumonitis. Abdiel Duncan MD on May 26, 2017 at 19:14 Board Certified Radiologist. This report was verified electronically.
[2017-05-26 20:05] LABS: AUTOMATED NEUTROPHIL # 7.8 TH/MM3 (1.8-7.7); BASOPHIL # 0.1 TH/MM3 (0-0.2); BASOPHIL % 0.7 % (0.0-2.0); EOSINOPHIL # 0.1 TH/MM3 (0-0.4); EOSINOPHIL % 1.2 % (0.0-4.0); HEMATOCRIT 45.3 % (39.0-51.0); HEMOGLOBIN 15.4 GM/DL (13.0-17.0); LYMPH % 26.6 % (9.0-44.0); LYMPHOCYTE # 3.1 TH/MM3 (1.0-4.8); MEAN CELL VOLUME 88.1 FL (80.0-100.0); MEAN CORPUSCULAR HEMOGLOBIN 29.9 PG (27.0-34.0); MEAN CORPUSCULAR HGB CONC 33.9 % (32.0-36.0); MEAN PLATELET VOLUME 9.5 FL (7.0-11.0); MONO % 5.4 % (0.0-8.0); MONOCYTE # 0.6 TH/MM3 (0-0.9); NEUT % 66.1 % (16.0-70.0); PLATELET COUNT 224 TH/MM3 (150-450); RED BLOOD COUNT 5.15 MIL/MM3 (4.50-5.90); RED CELL DISTRIBUTION WIDTH 12.9 % (11.6-17.2); WHITE BLOOD COUNT 11.7 TH/MM3 (4.0-11.0)
[2017-05-26 20:15] LABS: PROTHROMBIN TIME - PATIENT 10.1 SEC (9.8-11.6)
[2017-05-26 20:24] LABS: BICARBONATE 28.8 MEQ/L (21.0-32.0); BLOOD UREA NITROGEN 13 MG/DL (7-18); CALCIUM 9.3 MG/DL (8.5-10.1); CHLORIDE 102 MEQ/L (98-107); CREATININE 1.24 MG/DL (0.60-1.30); GLOMERULAR FILTRATION RATE 68 ML/MIN (>89); GLUCOSE,RANDOM 86 MG/DL (74-106); SODIUM (NA) 136 MEQ/L (136-145)
[2017-05-26 20:28] LABS: TROPONIN I LESS THAN 0.02 NG/ML (0.02-0.05)
[2017-05-26 21:00] VITALS: BP 128/76
[2017-05-26] MEDS ORDERED: PANTOPRAZOLE SOD 40 MG DELAYED RELEASE TAB PO ONE (21:00)
[2017-05-26] MEDS ORDERED: ONDANSETRON ODT 4 MG TAB PO ONE (21:00)
[2017-05-26] MEDS ORDERED: ASPIRIN 81 MG CHEW TAB PO ONE (21:00)
--- NOTE | 2017-05-26 21:06 | PD ---
HPI Chief Complaint: Chest Pain Time Seen by Provider: 20:36 Travel History International Travel<30 days: No Contact w/Intl Traveler<30days: No Traveled to known affect area: No History of Present Illness HPI 31-year-old male presents to the ED for evaluation of 9/10 epigastric pain. Patient endorses multiple episodes over the last few days. He states the first episode was 2 days ago at rest. He endorses sharp pain, diaphoresis, followed by an episode of vomiting. He states that the pain resolved spontaneously shortly after emesis. He states that the pain began again around 3:00 this afternoon. He endorses associated nausea. Denies vomiting, diaphoresis, palpitations. Denies known injury or recent overuse. Denies recent cold or flu symptoms. He states that he has a history of GERD and this pain is different. He endorses history of hypertension, states that he is not currently taking any medications. He endorses cardiac history in his father. He is a non-smoker. He treated at home with milk of magnesia with no improvement of his symptoms. PFSH Past Medical History Bipolar Disorder: Yes Anxiety: Yes Cardiovascular Problems: Yes Diabetes: No Diminished Hearing: No Genitourinary: Yes (BLADDER SURGERY) Hypertension: Yes Musculoskeletal: Yes (CHRONIC BACK PAIN DDD BULGING DISCS) Psychiatric: Yes (BIPOLAR) Immunizations Current: No Seizures: Yes (LAST 2 YEARS AGO.) Past Surgical History Genitourinary Surgery: Yes (BLADDER SURGERY DUE TO THICKENING OF WALL 2002) Social History Alcohol Use: Yes (OCCASIONAL) Tobacco Use: No Substance Use: No Allergies-Medications (Allergen,Severity, Reaction): Coded Allergies: tramadol (Verified Adverse Reaction, Intermediate, SOB, TACHYCARDIA, PALPITATIONS, 03/17/17) Reported Meds & Prescriptions Reported Meds & Active Scripts Active Magnesium Citrate Liq (Magnesium Citrate) 300 Ml Liq 300 Ml PO ONCE Mineral Oil Enema (Mineral Oil) 118 Ml Enem 1 Ea RECTAL ONCE Dulcolax Supp (Bisacodyl) 10 Mg Supp 10 Mg RECTAL DAILY PRN Medrol Dosepak (Methylprednisolone) 4 Mg Dspk 4 Mg PO DIRECTED Per Pharmacist direction Robaxin (Methocarbamol) 750 Mg Tab 750 Mg PO Q8HR Ibuprofen 800 Mg Tab 800 Mg PO Q8H PRN Naproxen 500 Mg Tab 500 Mg PO BID PRN Review of Systems Except as stated in HPI: all other systems reviewed are Neg Physical Exam Narrative GENERAL: Well-nourished, well-developed obese white male in no acute distress. SKIN: Focused skin assessment warm/dry. HEAD: Normocephalic. EYES: No scleral icterus. No injection or drainage. NECK: Supple, trachea midline. No JVD or lymphadenopathy. CARDIOVASCULAR: Regular rate and rhythm without murmurs, gallops, or rubs. CHEST: Reproducible tenderness to palpation of the mid sternum. Otherwise nontender throughout without deformity or crepitus. No retractions or use of accessory muscles. RESPIRATORY: Breath sounds clear and equal bilaterally. No accessory muscle use. GASTROINTESTINAL: Abdomen soft, non-tender, nondistended. MUSCULOSKELETAL: No cyanosis, or edema. BACK: Nontender without obvious deformity. No CVA tenderness. Data Data Last Documented VS Vital Signs Date Time Temp Pulse Resp B/P (MAP) Pulse Ox O2 Delivery O2 Flow Rate FiO2 05/26/17 18:33 98.9 84 24 126/71 (89) 99 Room Air Orders Orders Electrocardiogram (05/26/17 18:37) Basic Metabolic Panel (Bmp) (05/26/17 18:37) Ckmb (Isoenzyme) Profile (05/26/17 18:37) Complete Blood Count With Diff (05/26/17 18:37) Magnesium (Mg) (05/26/17 18:37) Prothrombin Time / Inr (Pt) (05/26/17 18:37) Act Partial Throm Time (Ptt) (05/26/17 18:37) Troponin I (05/26/17 18:37) Chest, Pa & Lat (05/26/17 18:37) CKMB (05/26/17 19:38) CKMB% (05/26/17 19:38) Ecg Monitoring (05/26/17 20:59) Bilateral Bp Monitoring (05/26/17 20:59) Iv Access Insert/Monitor (05/26/17 20:59) Oximetry (05/26/17 20:59) Aspirin Chew (Aspirin Chew) (05/26/17 21:00) Pantoprazole (Protonix) (05/26/17 21:00) Ondansetron Odt (Zofran Odt) (05/26/17 21:00) Nitroglycerin Sl (Nitrostat Sl) (05/26/17 21:30) Activity Bed Rest With Brp (05/26/17 21:27) Vital Signs (Adult) Q4H (05/26/17 21:27) Cardiac Rhythm .As Directed (05/26/17 21:27) Notify Dr: Other .PRN (05/26/17 21:27) Notify DrJayy Parameters (05/26/17 21:27) Resp Oxygen Nasal Cannula (05/26/17 ) Ckmb (Isoenzyme) Profile (05/26/17 21:27) Ckmb (Isoenzyme) Profile (05/27/17 00:27) Troponin I (05/26/17 21:) Troponin I (05/27/17 00:27) Electrocardiogram (05/26/17:) Electrocardiogram (05/27/17 00:27) ^ Obtain (05/26/17 21:) Sodium Chloride 0.9% Flush (Ns Flush) (05/26/17 21:30) Sodium Chloride 0.9% Flush (Ns Flush) (05/27/17 09:00) Acetaminophen (Tylenol) (05/26/17 21:30) Ondansetron Inj (Zofran Inj) (05/26/17 21:30) Horses Or Mules Teamster / Telemetry ASTER.Q8H (05/26/17 21:27) Labs Laboratory Tests Test 05/26/17 19:38 White Blood Count 11.7 TH/MM3 Red Blood Count 5.15 MIL/MM3 Hemoglobin 15.4 GM/DL Hematocrit 45.3 % Mean Corpuscular Volume 88.1 FL Mean Corpuscular Hemoglobin 29.9 PG Mean Corpuscular Hemoglobin Concent 33.9 % Red Cell Distribution Width 12.9 % Platelet Count 224 TH/MM3 Mean Platelet Volume 9.5 FL Neutrophils (%) (Auto) 66.1 % Lymphocytes (%) (Auto) 26.6 % Monocytes (%) (Auto) 5.4 % Eosinophils (%) (Auto) 1.2 % Basophils (%) (Auto) 0.7 % Neutrophils # (Auto) 7.8 TH/MM3 Lymphocytes # (Auto) 3.1 TH/MM3 Monocytes # (Auto) 0.6 TH/MM3 Eosinophils # (Auto) 0.1 TH/MM3 Basophils # (Auto) 0.1 TH/MM3 CBC Comment DIFF FINAL Differential Comment Prothrombin Time 10.1 SEC Prothromb Time International Ratio 1.0 RATIO Activated Partial Thromboplast Time 27.3 SEC Blood Urea Nitrogen 13 MG/DL Creatinine 1.24 MG/DL Random Glucose 86 MG/DL Calcium Level 9.3 MG/DL Magnesium Level 2.0 MG/DL Sodium Level 136 MEQ/L Potassium Level 4.1 MEQ/L Chloride Level 102 MEQ/L Carbon Dioxide Level 28.8 MEQ/L Anion Gap 5 MEQ/L Estimat Glomerular Filtration Rate 68 ML/MIN Total Creatine Kinase 109 U/L Creatine Kinase MB 0.6 NG/ML Troponin I LESS THAN 0.02 NG/ML MDM Medical Decision Making Medical Screen Exam Complete: Yes Emergency Medical Condition: Yes Differential Diagnosis Musculoskeletal chest pain versus GERD versus ACS versus other Narrative Course 31-year-old male presents to the ED for evaluation of episodic 9/10 epigastric pain. Accompanied by diaphoresis, nonbloody emesis. Denies vomiting, diaphoresis, palpitations, known injury or recent overuse. Denies recent cold or flu symptoms. He states that he has a history of GERD and this pain is different. He endorses history of hypertension, states that he is not currently taking any medications. He endorses cardiac history in his father. He is a non-smoker. He treated at home with milk of magnesia with no improvement of his symptoms. Vitals reviewed. On exam this is an obese white male in no acute distress. He does have reproducible tenderness over the mid sternum but the exam is otherwise unremarkable. He was administered nitroglycerin, 325 mg aspirin, Zofran ODT and pantoprazole by mouth. EKG: Rate 75, sinus rhythm. ME interval 165, QRS 29, QTC 367. Normal axis. No acute ST changes. Reviewed by Dr. Hill CXR: Mild increased perihilar interstitial markings are noted consistent with possible mild pulmonary vascular congestion or pneumonitis Cardiac enzymes: Negative 1 CBC: WBC 11.7. Hemoglobin 15.4. Coags INR 1.0. Chemistry unremarkable. I reviewed the patient's record. He has not previously had a cardiac workup. Given his untreated hypertension, positive familial risk factors I feel that admission to the chest pain center is appropriate. Patient is agreeable to this plan. Please see chest pain center notes for disposition. Shortly after admission orders were entered the patient's nurse came to me and states that the patient does not want to be admitted. I explained the patient the risks of leaving, up to and including . The patient acknowledged these risks but still chose to leave AGAINST MEDICAL ADVICE. Diagnosis Primary Impression: Chest pain Qualified Codes: R07.9 - Chest pain, unspecified Referrals: [facility] Additional Instructions: Rest, hydrate. Return to normal, gentle activity as tolerated. Follow-up with a race steward or glass designer for full evaluation of your epigastric pain. Return to the ED for worsening symptoms or any urgent or emergent medical condition. Disposition: 07 AGAINST MEDICAL ADVICE Condition: Stable Melisa Campos May 26, 2017 21:06
[2017-05-26 21:30] VITALS: BP 133/86; PULSE 70; RESP 16; O2SAT 100
[2017-05-26] MEDS ORDERED: ACETAMINOPHEN 500 MG CPLT PO PRN (21:30)
[2017-05-26] MEDS ORDERED: NITROGLYCERIN 0.4 MG SL 25 TABS/BTL SL ONE (21:30)
[2017-05-26] MEDS ORDERED: SODIUM CHLORIDE 0.9% FLUSH 10 ML FLUSH IV FLUSH PRN (21:30)
[2017-05-26] MEDS ORDERED: ONDANSETRON HCL 4 MG/2 ML VIAL IV PUSH PRN (21:30)
[2017-05-26 22:00] VITALS: BP 128/76
[2017-05-26 22:03] VITALS: O2SAT 100
[2017-05-26 22:11] VITALS: BP 126/71; PULSE 74; RESP 18; TEMP 97.5; O2SAT 98
[2017-05-27] MEDS ORDERED: SODIUM CHLORIDE 0.9% FLUSH 10 ML FLUSH IV FLUSH SCH (09:00)
--- NOTE | 2017-05-28 00:48 | EKG ---
Date Performed: 05/26/2017 Time Performed: 19:34:28 PTAGE: 31 years EKG: Sinus rhythm NORMAL ECG PREVIOUS TRACING : 09/23/2016 16.59 Since the prior tracing, there has been no significant christine DOCTOR: Humberto Murray Interpretating Date/Time 05/28/2017 00:47:28
== END 2017-05-26 22:18 | disposition left against medical advice (07) ==
LOC: NEPE 18:30
DX: R07.9 Chest pain, unspecified (principal); I10 Essential (primary) hypertension; F31.9 Bipolar disorder, unspecified; K21.9 Gastro-esophageal reflux disease without esophagitis; F41.9 Anxiety disorder, unspecified; Z88.8 Allergy status to other drugs, medicaments and biological substances; Z79.899 Other long term (current) drug therapy
CPT/HCPCS: 71046; 80048; 82550; 82552; 83735; 84484; 85025; 85610; 85730; 93005; 99285

== ENCOUNTER 2017-06-19 16:53 | Emergency (ER) | payer MEDICARE, MEDICAID ==
[~2017-06-19] VITALS: Ht 182.9 cm; Wt 160.0 kg
[2017-06-19 16:55] VITALS: BP 148/98; PULSE 92; RESP 16; TEMP 97.9; O2SAT 99
--- NOTE | 2017-06-19 18:03 | RADRPT ---
EXAM DATE/TIME: 06/19/2017 17:47 [facility] COMPARISON: No previous studies available for comparison. INDICATIONS : Stepped on nails this afternoon. MEDICAL HISTORY : Hypertension. SURGICAL HISTORY : None. ENCOUNTER: Initial ACUITY: 1 day PAIN SCORE: 9/10 LOCATION: Left Foot FINDINGS: Three view examination of the left foot demonstrates no fracture or dislocation. Soft tissue swelling overlying the lateral mid foot. No radiopaque foreign bodies. The tarsal bones appear intact. The interphalangeal and metatarsophalangeal joints are intact. The calcaneus is intact. Bony mineraliz ation is normal. CONCLUSION: 1. Soft tissue swelling overlying the lateral mid foot. No radiopaque foreign bodies or fracture. Jamie Bernal MD on June 19, 2017 at 18:00 Board Certified Radiologist. This report was verified electronically.
[2017-06-19] MEDS ORDERED: CIPR500T2 PO (19:08)
[2017-06-19] MEDS ORDERED: IBUP-232 PO (19:08)
--- NOTE | 2017-06-19 19:09 | PD ---
HPI Chief Complaint: Injury Time Seen by Provider: 18:59 Travel History International Travel<30 days: No Contact w/Intl Traveler<30days: No Traveled to known affect area: No History of Present Illness HPI 31-year-old male presents to the emergency department for evaluation of left foot injury. Patient states that around 3:30 PM today, he stepped on a nail that went through his boot and into his left foot. He was able to remove it without difficulty. He states his tetanus immunization is not up-to-date. Patient reports history of hypertension, psychiatric issues. Patient denies any other injury or complaint at this time. No exacerbating or alleviating factors. Mild severity. PFSH Past Medical History Bipolar Disorder: Yes Anxiety: Yes Cardiovascular Problems: Yes Diabetes: No Diminished Hearing: No Genitourinary: Yes (BLADDER SURGERY) Hypertension: Yes Musculoskeletal: Yes (CHRONIC BACK PAIN DDD BULGING DISCS) Psychiatric: Yes (BIPOLAR) Immunizations Current: No Seizures: Yes (LAST 2 YEARS AGO.) Past Surgical History Genitourinary Surgery: Yes (BLADDER SURGERY DUE TO THICKENING OF WALL 2001) Social History Alcohol Use: Yes (OCCASIONAL) Tobacco Use: No Substance Use: No Allergies-Medications (Allergen,Severity, Reaction): Coded Allergies: tramadol (Verified Adverse Reaction, Intermediate, SOB, TACHYCARDIA, PALPITATIONS, 03/17/17) Reported Meds & Prescriptions Reported Meds & Active Scripts Active Magnesium Citrate Liq (Magnesium Citrate) 300 Ml Liq 300 Ml PO ONCE Mineral Oil Enema (Mineral Oil) 118 Ml Enem 1 Ea RECTAL ONCE Dulcolax Supp (Bisacodyl) 10 Mg Supp 10 Mg RECTAL DAILY PRN Medrol Dosepak (Methylprednisolone) 4 Mg Dspk 4 Mg PO DIRECTED Per Pharmacist direction Robaxin (Methocarbamol) 750 Mg Tab 750 Mg PO Q8HR Ibuprofen 800 Mg Tab 800 Mg PO Q8H PRN Naproxen 500 Mg Tab 500 Mg PO BID PRN Review of Systems Except as stated in HPI: all other systems reviewed are Neg Physical Exam Narrative GENERAL: Well-nourished, well-developed male patient, afebrile. SKIN: Focused skin assessment warm/dry. Patient has small puncture wound to the left lateral plantar foot. No current bleeding. HEAD: Normocephalic. Atraumatic. EYES: No scleral icterus. No injection or drainage. NECK: Supple, trachea midline. No JVD or lymphadenopathy. CARDIOVASCULAR: Regular rate and rhythm without murmurs, gallops, or rubs. Left pedal pulse is 2+. RESPIRATORY: Breath sounds equal bilaterally. No accessory muscle use. Lungs sounds are clear to auscultation. MUSCULOSKELETAL: No cyanosis, or edema. Data Data Last Documented VS Vital Signs Date Time Temp Pulse Resp B/P (MAP) Pulse Ox O2 Delivery O2 Flow Rate FiO2 06/19/17 16:55 97.9 92 16 148/98 (115) 99 Orders Orders Foot, Complete ([id number]) (06/19/17 ) Tetanus/Diphtheria Tox Adult (Tetanus/Di (06/19/17 19:15) Ibuprofen (Motrin) (06/19/17 19:15) MDM Medical Decision Making Medical Screen Exam Complete: Yes Emergency Medical Condition: Yes Medical Record Reviewed: Yes Interpretation(s) Last Impressions Foot X-Ray 06/19/17 0000 Signed Impressions: Service Date/Time: May 17:47 - CONCLUSION: 1. Soft tissue swelling overlying the lateral mid foot. No radiopaque foreign bodies or fracture. Jamie Bernal MD Differential Diagnosis Puncture wound versus foreign body versus cellulitis Narrative Course 31-year-old male presents to the emergency department for evaluation after he stepped on a nail today. X-ray of the left foot shows no radiopaque foreign bodies or bony injury. Tetanus immunization is updated. Patient is given ibuprofen 600 mg by mouth. He'll be discharged with a prescription for ciprofloxacin. He is instructed on proper wound care. The patient was discharged in stable condition with instructions, including return instructions and follow up instructions. Diagnosis Primary Impression: Puncture wound of left foot Qualified Codes: S91.332A - Puncture wound without foreign body, left foot, initial encounter Referrals: Primary Care Physician call for appointment Patient Instructions: General Instructions, Puncture Wound (ED) Additional Instructions: Clean puncture wound of left foot twice daily with soap and water and apply over -the-counter antibiotic ointment. Keep clean and dry. Take antibiotic as directed until gone. Follow-up with your primary care physician. Return to the emergency department for any acute worsening of symptoms. Med/Other Pt SpecificInfo: Prescription(s) given Scripts Ibuprofen (Ibuprofen) 600 Mg Tab 600 MG PO TID Y for PAIN SCALE 1 TO 10, #21 TAB 0 Refills Prov: Shaista Dubose 06/19/17 Ciprofloxacin (Ciprofloxacin) 500 Mg Tab 500 MG PO BID for Infection for 10 Days, #20 TAB 0 Refills Prov: Shaista Dubose 06/19/17 Disposition: 01 DISCHARGE HOME Condition: Stable Shaista Dubose Jun 19, 2017 19:09
[2017-06-19] MEDS ORDERED: IBUPROFEN 600 MG TAB PO ONE (19:15)
[2017-06-19] MEDS ORDERED: TETANUS/DIPHTHERIA TOXOID ADULT 0.5 ML VIAL IM ONE (19:15)
== END 2017-06-19 19:28 | disposition home or self-care (01) ==
LOC: NEPK 16:53
DX: S91.332A Puncture wound without foreign body, left foot, initial encounter (principal); W45.0XXA Nail entering through skin, initial encounter; Z23 Encounter for immunization
CPT/HCPCS: 73630; 90471; 90714

== ENCOUNTER 2017-07-28 09:04 | Emergency (ER) | payer MEDICAID, MEDICARE ==
[~2017-07-28] VITALS: Ht 182.9 cm; Wt 150.0 kg
[~2017-07-28 09:04] MED LIST changes: +CIPR500T2 PO; -DULC10SU3 RECTAL; -ENEMENE6 RECTAL; +IBUP-232 PO; -IBUP1TAB7 PO; -MAGNSOL2 PO; -MEDR4PAK PO; -NAPR500T2 PO; -ROBA750T PO
[2017-07-28 09:13] VITALS: BP 155/72; PULSE 84; RESP 20; TEMP 98.1; O2SAT 97
--- NOTE | 2017-07-28 09:22 | PD ---
HPI Chief Complaint: Pain: Acute or Chronic Time Seen by Provider: 09:21 Travel History International Travel<30 days: No Contact w/Intl Traveler<30days: No Traveled to known affect area: No History of Present Illness HPI 31-year-old male presents for evaluation of left knee pain. He reports that he slipped and fell 2 weeks ago and landed on his left knee. Since then he has had pain in his inferior anterior left knee which is throbbing and worse when walking or with extension. He has been using [id number] NSAIDs but symptoms persist which prompted evaluation. He denies any other injuries and he has no other complaints at this time. PFSH Past Medical History Bipolar Disorder: Yes Anxiety: Yes Cardiovascular Problems: Yes Diabetes: No Diminished Hearing: No Genitourinary: Yes (BLADDER SURGERY) Hypertension: Yes Musculoskeletal: Yes (CHRONIC BACK PAIN DDD BULGING DISCS) Psychiatric: Yes (BIPOLAR) Immunizations Current: No Seizures: Yes (LAST 2 YEARS AGO.) Past Surgical History Genitourinary Surgery: Yes (BLADDER SURGERY DUE TO THICKENING OF WALL 2001) Social History Alcohol Use: No (denies) Tobacco Use: No Substance Use: No Allergies-Medications (Allergen,Severity, Reaction): Coded Allergies: tramadol (Verified Adverse Reaction, Intermediate, SOB, TACHYCARDIA, PALPITATIONS, 07/28/17) Reported Meds & Prescriptions Reported Meds & Active Scripts Active Diclofenac Sodium DR (Diclofenac Sodium) 75 Mg Tabdr 75 Mg PO BID 10 Days Review of Systems Musculoskeletal: Positive: Pain, No: Weakness, Edema Skin: Positive Other (Denies open wounds) Physical Exam Narrative GENERAL: Well-developed well-nourished male in no acute distress SKIN: Warm and dry. No bruising or soft tissue swelling CARDIOVASCULAR: Regular rate and rhythm. No murmur appreciated. RESPIRATORY: No accessory muscle use. Clear to auscultation. Breath sounds equal bilaterally. Extremities: Tender to palpation to the inferior anterior aspect of left knee. There is pain with flexion and extension of the left knee. There is no obvious laxity on anterior posterior stress. Distal sensation and pulses preserved. Data Data Last Documented VS Vital Signs Date Time Temp Pulse Resp B/P (MAP) Pulse Ox O2 Delivery O2 Flow Rate FiO2 07/28/17 09:13 98.1 84 20 155/72 (99) 97 Orders Orders Knee, Complete (4vws) (07/28/17 ) Ed Discharge Order (07/28/17 10:14) [facility] Medical Decision Making Medical Screen Exam Complete: Yes Emergency Medical Condition: Yes Medical Record Reviewed: Yes Differential Diagnosis Sprain, contusion, tibial plateau fracture, proximal fibular fracture, patellar fracture, ligamentous disruption, meniscal disruption Narrative Course X-ray imaging was obtained revealing no acute abnormalities. At this point in time the plan will be to treat the patient with a short course of diclofenac and have him follow-up with his primary care physician in 2 weeks for recheck. Diagnosis Primary Impression: Strain of left knee Additional Instructions: Medication as needed. Take with meals. Do not take [id number] ibuprofen/ Aleve/Advil/Motrin/naproxen when taking this medication. Follow-up with primary care physician in 2 weeks for recheck. Return for any emergent medical conditions. Med/Other Pt SpecificInfo: Prescription(s) given Scripts Diclofenac Sodium DR (Diclofenac Sodium DR) 75 Mg Tabdr 75 MG PO BID for 10 Days, #20 TAB 0 Refills Prov: Og Zavaleta MD 07/28/17 Disposition: 01 DISCHARGE HOME Condition: Stable Nelson Byers Jul 28, 2017 09:22
--- NOTE | 2017-07-28 10:08 | RADRPT ---
EXAM DATE/TIME: 07/28/2017 09:38 [place] COMPARISON: No previous studies available for comparison. INDICATIONS : Left knee pain after fall. MEDICAL HISTORY : Hypertension. TB. SURGICAL HISTORY : None. ENCOUNTER: Initial ACUITY: 2 weeks PAIN SCORE: 5/10 LOCATION: Left knee. FINDINGS: Four view examination of the left knee demonstrates no evidence of fracture or dislocation. Bony min eralization is normal. The articular surfaces are intact. The suprapatellar soft tissues have a nor mal configuration. CONCLUSION: 1. The osseous structures are intact. No fracture seen. Adam Young MD on July 28, 2017 at 10:05 Board Certified Radiologist. This report was verified electronically.
[2017-07-28] MEDS ORDERED: DICL75TA PO (10:12)
== END 2017-07-28 10:21 | disposition home or self-care (01) ==
LOC: NEPK 09:04
DX: S86.912A Strain of unspecified muscle(s) and tendon(s) at lower leg level, left leg, initial encounter (principal); W01.0XXA Fall on same level from slipping, tripping and stumbling without subsequent striking against object, initial encounter
CPT/HCPCS: 73564; 99283

== ENCOUNTER 2017-10-17 20:10 | Emergency (ER) | payer MEDICARE, MEDICAID ==
[~2017-10-17] VITALS: Ht 182.9 cm; Wt 164.6 kg
[~2017-10-17 20:10] MED LIST changes: -CIPR500T2 PO; +DICL75TA PO; -IBUP-232 PO
[2017-10-17 20:14] VITALS: BP 144/95; PULSE 88; RESP 18; TEMP 98.9; O2SAT 98
[2017-10-17] MEDS ORDERED: DEXI60CA3 (20:23)
[2017-10-17] MEDS ORDERED: METHOCARBAMOL 500 MG TAB PO STA (20:28)
[2017-10-17] MEDS ORDERED: KETOROLAC TROMETHAMINE 60 MG/2 ML (IM) VIAL IM ONE (20:30)
[2017-10-17] MEDS ORDERED: DEXAMETHASONE SOD PHOS 4 MG/ML VIAL IM ONE (20:30)
--- NOTE | 2017-10-17 20:36 | PD ---
HPI Chief Complaint: Back/ Neck Pain or Injury Time Seen by Provider: 20:21 Travel History International Travel<30 days: No Contact w/Intl Traveler<30days: No Traveled to known affect area: No History of Present Illness HPI 32-year-old male with a history of low back pain presents emergency department for evaluation of low back pain that started about 1300 today. Patient says that he was under his truck and went to move from under his truck when his pain started. Says his pain is severe with some radiation of pain into his left leg. Movement increases his pain and rest somewhat decreases his pain. Patient has not taken any medication for his pain. Denies fevers, loss of bowel or bladder function, saddle anesthesia, IV drug use, direct trauma to the back. 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 He says that he recently had a 20 pound weight gain over the last 1-2 weeks because of change of eating habits. He says that his dad in January and has not been doing much activity since then. PFS Past Medical History Bipolar Disorder: Yes Anxiety: Yes Cardiovascular Problems: Yes Diabetes: No Diminished Hearing: No Genitourinary: Yes (BLADDER SURGERY) Hypertension: Yes Musculoskeletal: Yes (CHRONIC BACK PAIN DDD BULGING DISCS) Psychiatric: Yes (BIPOLAR) Immunizations Current: No Seizures: Yes (LAST 2 YEARS AGO.) ?: Not Past Surgical History Genitourinary Surgery: Yes (BLADDER SURGERY DUE TO THICKENING OF WALL 2001) Social History Alcohol Use: No (denies) Tobacco Use: No Substance Use: No Allergies-Medications (Allergen,Severity, Reaction): Coded Allergies: tramadol (Verified Adverse Reaction, Intermediate, SOB, TACHYCARDIA, PALPITATIONS, 10/17/17) Reported Meds & Prescriptions Reported Meds & Active Scripts Active Robaxin (Methocarbamol) 500 Mg Tab 500 Mg PO TID 5 Days Medrol Dosepak (Methylprednisolone) 4 Mg Dspk 4 Mg PO DIRECTED Per Pharmacist direction Reported Dexilant (Dexlansoprazole) 60 Mg Cap.bp Review of Systems Except as stated in HPI: all other systems reviewed are Neg Physical Exam Narrative GENERAL: Well-nourished, well-developed patient, in mild distress SKIN: Focused skin assessment warm/dry. No rashes or lesions. HEAD: Normocephalic. Atraumatic. EYES: No scleral icterus. No injection or drainage. THROAT: Airway is patent. NECK: Supple, trachea midline. No JVD. No meningismus. No midline tenderness CARDIOVASCULAR: Regular rate and rhythm without murmurs, gallops, or rubs. RESPIRATORY: Breath sounds equal bilaterally. No accessory muscle use. No wheezes, rales, or rhonchi MUSCULOSKELETAL: No cyanosis, or edema. BACK: No CVA tenderness. No rash. No point tenderness on palpation of the spine. Diffuse tenderness on the paraspinous musculature of the lumbar spine. Some tenderness palpation of the right glutes with accompanying muscle spasms. Note that exam is limited by body habitus.Grade 5/5 strength b/l lower extremities. No focal neuro deficits lower extremities. Data Data Last Documented VS Vital Signs Date Time Temp Pulse Resp B/P (MAP) Pulse Ox O2 Delivery O2 Flow Rate FiO2 10/17/17 20:14 98.9 88 18 144/95 (111) 98 Orders Orders Dexamethasone Inj (Decadron Inj) (10/17/17 20:30) Ketorolac Inj (Toradol Inj) (10/17/17 20:30) Methocarbamol (Robaxin) (10/17/17 20:28) Acetamin-Hydrocod 325-5 Mg ([place] 5-325 (10/17/17 21:00) MDM Medical Decision Making Medical Screen Exam Complete: Yes Emergency Medical Condition: Yes Differential Diagnosis lumbago, sciatica, muscle spasms, strain, sprain, fracture Narrative Course 32-year-old male presents emergency department with acute on chronic low back pain that started about 1 PM today. She describes an exacerbating event as being under a truck and then as he was moving from underneath that he developed his pain. He says that he has some "tingling" along the left leg denies weakness or numbness. Says his pain is moderate to severe and radiates to the left leg. He describes a 20 pound weight gain and a decrease in activity since January of last year. I suspect the patient is deconditioned and likely has a back strain resulting in muscle spasms and subsequently developing sciatica pain. No back pain red flags. His vital signs are stable. Dexamethasone, Robaxin, Toradol, hydrocodone administered in the emergency department today. Pt says he has taken hydrocodone without adverse reactions previously. Patient discharged with Robaxin and Medrol Dosepak. He is strongly advised to lose weight. He is advised to follow-up with a primary care physician and consider an orthopedic physician for further treatment and evaluation. Diagnosis Primary Impression: Lumbago Qualified Codes: M54.42 - Lumbago with sciatica, left side Referrals: Raj Mcneal MD Orthopedist Primary Care Physician Patient Instructions: Acute Low Back Pain (ED), General Instructions Departure Forms: Tests/Procedures, Work Release Enter return to work date: Oct 20, 2017 Additional Instructions: Perform light stretches of the lower back and legs, and alternate heat and ice packs. If you develop increased pain, weakness, fever, chills, or bowel or bladder issues, return to the ED for further treatment and evaluation. Follow up with your primary care physician in 2-3 days. Avoid strict bedrest as this may make your symptoms worse. Ensure plenty of water intake throughout the day to assist with your weight loss. Avoid fried, sugary, or high calorie items patient may gain weight with this despite eating 3 times a day. Your weight gain and recent inactivity may be contributing to your back pain. Scripts Methocarbamol (Robaxin) 500 Mg Tab 500 MG PO TID for Muscle Spasm for 5 Days, TAB 0 Refills Prov: Fahad Martinez MD 10/17/17 Methylprednisolone Dosepak (Medrol Dosepak) 4 Mg Dspk 4 MG PO DIRECTED, #1 DSPK 0 Refills Per Pharmacist direction Prov: Fahad Martinez MD 10/17/17 Disposition: 01 DISCHARGE HOME Condition: Stable Madeleine Sahu Oct 17, 2017 20:36
[2017-10-17] MEDS ORDERED: MEDR4PAK PO (20:44)
[2017-10-17] MEDS ORDERED: ROBA500T PO (20:44)
[2017-10-17] MEDS ORDERED: ACETAMINOPHEN/HYDROcodone 325 MG/5 MG TAB PO ONE (21:00)
[2017-10-17 21:10] VITALS: BP 120/68; PULSE 87; RESP 20; O2SAT 97
== END 2017-10-17 21:28 | disposition home or self-care (01) ==
LOC: PHEFT 20:10
DX: M54.42 Lumbago with sciatica, left side (principal); I10 Essential (primary) hypertension; F31.9 Bipolar disorder, unspecified; Z88.8 Allergy status to other drugs, medicaments and biological substances; Z79.899 Other long term (current) drug therapy
CPT/HCPCS: 96372; 99283; J1100; J1885; 90472

== ENCOUNTER 2018-03-16 00:14 | Inpatient (IN) ==
[2018-03-16] MEDS ORDERED: Morphine Inj 4 MG/ML Vial IV.PUSH ONE (01:36)
[2018-03-16 02:00] LABS: Baso # (Auto) 0.2 th/mm3 (0.0-0.2); Baso % (Auto) 1.6 % (0.0-2.0); Eos # (Auto) 0.5 th/mm3 (0.0-0.4); Eos % (Auto) 4.3 % (0.0-4.0); Hematocrit 46.7 % (39.0-51.0); Hemoglobin 15.7 gm/dL (13.0-17.0); Lymph # (Auto) 3.1 th/mm3 (1.0-4.8); Lymph % (Auto) 26.6 % (9.0-44.0); Mean Corpuscular HGB Conc 33.6 % (32.0-36.0); Mean Corpuscular Hemoglobin 29.3 pg (27.0-34.0); Mean Corpuscular Volume 87.2 fL (80.0-100.0); Mean Platelet Volume 9.6 fL (7.0-11.0); Mono # (Auto) 0.7 th/mm3 (0.0-0.9); Neut # (Auto) 7.2 th/mm3 (1.8-7.7); Neut % (Auto) 61.5 % (16.0-70.0); Platelet Count 260 th/mm3 (150-450); Red Blood Count 5.36 mil/mm3 (4.50-5.90); Red Cell Distribution Width 12.8 % (11.6-17.2); White Blood Count 11.7 th/mm3 (4.0-11.0)
[2018-03-16 02:12] LABS: Chloride 100 meq/L (98-107); Sodium 135 meq/L (136-145)
[2018-03-16 02:15] LABS: Prothrombin Time 10.1 sec (9.8-11.6)
[2018-03-16 02:16] LABS: Albumin 3.8 g/dL (3.4-5.0); Anion Gap 9 meq/L (5-15); Blood Urea Nitrogen 13 mg/dL (7-18); Calcium 8.6 mg/dL (8.5-10.1); Carbon Dioxide 26.3 meq/L (21.0-32.0); Glucose,Random 88 mg/dL (74-106)
[2018-03-16 02:19] LABS: Alanine Aminotransferase 63 U/L (12-78); Aspartate Aminotransferase 29 U/L (15-37); Glomerular Filtration Rate 70 mL/min (>89)
[2018-03-16 02:21] LABS: Total Protein 8.3 g/dL (6.4-8.2)
[2018-03-16 02:22] LABS: Alkaline Phosphatase 105 U/L (45-117)
--- NOTE | 2018-03-16 02:26 | ED ---
HPI General Chief complaint: Skin/Abscess/Foreign Body Stated complaint: problem Time Seen by Provider: 03/16/18 00:53 History of Present Illness HPI narrative: Patient is a 32-year-old male obese coming in saying that for a 2 weeks he has had a band rubber bandlike foreskin wrapped around the head of his penis and is on retractable. Sounds like he is describing a paraphimosis and he says now he is getting cracks and bleeding and now there is white discharge and it sounds as if he may have a paraphimosis been going on for over 2 weeks. He said he had a surgery for his bladder wall repair and since then his penis is never really been normal that was over 2 years ago now it seems he is got a picture with him that shows from a week ago a paraphimosis. I immediately look at him bedside and he is very painful for me to try to retract his foreskin and there is bleeding and mucus-like or Laura-like discharge around the opening of the foreskin. The patient then is able to bring the head of his penis out and I can see the band of foreskin wrapped around the head of the penis with excoriations around the shaft the penis as well as the head of the penis seems to be a chronic paraphimosis that is progressively getting worse. Pain is severe getting worse every movement it hurts as there are erosions to the foreskin Related Data Home Medications Medication Instructions Recorded Confirmed No Known Home Medications 03/16/18 03/16/18 Allergies Allergy/AdvReac Type Severity Reaction Status Date / Time tramadol AdvReac Intermediate SOB, Verified 02/18/18 00:50 TACHYCARDIA, PALPITATIONS Review of Systems ROS: all other systems reviewed are negative [facility] Social History Social History Substance History: No History of Abuse Second Hand Smoke Exposure: No Smoking Status: Current every day smoker Tobacco Type: Cigarettes How Often Do You Have a Drink Containing Alcohol: Never Recent Travel in [facility] within the Last 8 Weeks: No Recent Out of Country Travel within the Last 8 Weeks: No Immunization History Tetanus Immunization: <5 Years Tetanus Immunization Year if Known: 2017 Exam Narrative Exam Narrative: GENERAL: pt is awake alert has pain with movement in the groin area or taking off underwear SKIN: Warm and dry. excoriation like breakdown of skin on distal penis shaft HEAD: Atraumatic. Normocephalic. EYES: Pupils equal and round. No scleral icterus. No injection or drainage. ENT: No nasal bleeding or discharge. Mucous membranes pink and moist. NECK: Trachea midline. No JVD. CARDIOVASCULAR: Regular rate and rhythm. RESPIRATORY: No accessory muscle use. Clear to auscultation. Breath sounds equal bilaterally. exam pt has excoriation of his distal penis shaft and there is a band like roll up of foreskin around the penis head there is purulent discharge from under the paraphimosis band this does not appear to be acute paraphimosis but long standing according to patient its been this way over 2 weeks GASTROINTESTINAL: Abdomen soft, non-tender, nondistended. Hepatic and splenic margins not palpable. MUSCULOSKELETAL: Extremities without clubbing, cyanosis, or edema. No obvious deformities. NEUROLOGICAL: Awake and alert. No obvious cranial nerve deficits. Motor grossly within normal limits. Five out of 5 muscle strength in the arms and legs. Normal speech. PSYCHIATRIC: Appropriate mood and affect; insight and judgment normal. Course Hospital Course: still awaiting call back from urology balance wheel motion inspector first page is sent at 230AM going on 3 hrs awaiting call back. paraphimosis seems over 1-2 weeks for this reason I do not do a doral slit in ER would prefer URO in OR circumcision defintive treatment Initial Documented Vital Signs Temperature 97.6 F 03/16/18 00:22 Pulse Rate 102 H 03/16/18 00:22 Respiratory Rate 18 03/16/18 00:22 Blood Pressure 164/105 H 03/16/18 00:22 Pulse Oximetry 98 03/16/18 00:22 Last Documented Vital Signs Temperature 97.6 F 03/16/18 00:22 Pulse Rate 83 03/16/18 03:35 Respiratory Rate 17 03/16/18 03:35 Blood Pressure 112/64 03/16/18 03:35 Pulse Oximetry 100 03/16/18 03:35 Medical Decision Making MDM Narrative Medical decision making narrative: I examined the penis there is a paraphimosis it does appear to be long-standing O well over 6 hours appears according to the patient's photos on his phone and time over 2 weeks this is been going on he needs to have a circumcision in the next day I will call urology get him admitted so that they can put him on the OR schedule for today I do not feel is emergent that I do a dorsal slit in the ER as this is not acute it seems to be going on for over 2 weeks due to the possible infection risk and postprocedural bleeding I think he can wait till a.m. to have a dorsal slit circumcision done by urology specialist page sent at 2:20 to urology Medical Screen Exam Complete: Yes Emergency Medical Condition: Yes Differential Diagnosis Differential Diagnosis: Patient seems to have a paraphimosis that he reports is been going on for over 2 weeks now there seems to be some excoriation of the distal shaft of the penis as well as possible purulent or candidal involvement as well as areas with oozing red abrasion like breakdown there is no signs of necrosis or ischemia directly to the glans penis Lab Data Result diagrams: 03/16/18 01:47 03/16/18 01:47 Lab Results 03/16/18 03/16/18 03/16/18 Range/Units 01:47 01:47 01:47 CBC w Diff Auto diff final WBC 11.7 H (4.0-11.0) th/mm3 RBC 5.36 (4.50-5.90) mil/mm3 Hgb 15.7 (13.0-17.0) gm/dL Hct 46.7 (39.0-51.0) % MCV 87.2 (80.0-100.0) fL MCH 29.3 (27.0-34.0) pg MCHC 33.6 (32.0-36.0) % RDW 12.8 (11.6-17.2) % Plt Count 260 (150-450) th/mm3 MPV 9.6 (7.0-11.0) fL Neut % (Auto) 61.5 (16.0-70.0) % Lymph % (Auto) 26.6 (9.0-44.0) % [place] % (Auto) 6.0 (0.0-8.0) % Eos % (Auto) 4.3 H (0.0-4.0) % Baso % (Auto) 1.6 (0.0-2.0) % Neut # (Auto) 7.2 (1.8-7.7) th/mm3 Lymph # (Auto) 3.1 (1.0-4.8) th/mm3 [place] # (Auto) 0.7 (0.0-0.9) th/mm3 Eos # (Auto) 0.5 H (0.0-0.4) th/mm3 Baso # (Auto) 0.2 (0.0-0.2) th/mm3 WBC Differential . Differential Comment . PT 10.1 (9.8-11.6) sec INR 1.0 Ratio Sodium 135 L (136-145) meq/L Potassium 4.0 (3.5-5.1) meq/L Chloride 100 (98-107) meq/L Carbon Dioxide 26.3 (21.0-32.0) meq/L Anion Gap 9 (5-15) meq/L BUN 13 (7-18) mg/dL Creatinine 1.20 (0.60-1.30) mg/dL Estimated GFR 70 L (>89) mL/min Random Glucose 88 (74-106) mg/dL Lactic Acid (0.4-2.0) mmol/L Calcium 8.6 (8.5-10.1) mg/dL Total Bilirubin 0.3 (0.2-1.0) mg/dL AST 29 (15-37) U/L ALT 63 (12-78) U/L Alkaline Phosphatase 105 (45-117) U/L Total Protein 8.3 H (6.4-8.2) g/dL Albumin 3.8 (3.4-5.0) g/dL Urine Color (Yellw/Straw) Urine Clarity (Clear) Urine pH (5.0-8.5) Ur Specific [place] (1.002-1.035) Urine Protein (Neg-Trace) mg/dL Urine Glucose (UA) (Negative) mg/dL Urine Ketones (Negative) mg/dL Urine Occult Blood (Negative) Urine Nitrate (Negative) Urine Bilirubin (Negative) Urine Urobilinogen (Less than 2) mg/dL Ur Leukocyte Esterase (Negative) Urine RBC (0-3) /hpf Urine WBC (0-5) /hpf Ur Squamous Epith Cells (0-5) /hpf Urine Bacteria (None) /hpf Ur Microscopic Review 03/16/18 03/16/18 Range/Units 01:47 03:06 CBC w Diff WBC (4.0-11.0) th/mm3 RBC (4.50-5.90) mil/mm3 Hgb (13.0-17.0) gm/dL Hct (39.0-51.0) % MCV (80.0-100.0) fL MCH (27.0-34.0) pg MCHC (32.0-36.0) % RDW (11.6-17.2) % Plt Count (150-450) th/mm3 MPV (7.0-11.0) fL Neut % (Auto) (16.0-70.0) % Lymph % (Auto) (9.0-44.0) % [place] % (Auto) (0.0-8.0) % Eos % (Auto) (0.0-4.0) % Baso % (Auto) (0.0-2.0) % Neut # (Auto) (1.8-7.7) th/mm3 Lymph # (Auto) (1.0-4.8) th/mm3 [place] # (Auto) (0.0-0.9) th/mm3 Eos # (Auto) (0.0-0.4) th/mm3 Baso # (Auto) (0.0-0.2) th/mm3 WBC Differential Differential Comment PT (9.8-11.6) sec INR Ratio Sodium (136-145) meq/L Potassium (3.5-5.1) meq/L Chloride (98-107) meq/L Carbon Dioxide (21.0-32.0) meq/L Anion Gap (5-15) meq/L BUN (7-18) mg/dL Creatinine (0.60-1.30) mg/dL Estimated GFR (>89) mL/min Random Glucose (74-106) mg/dL Lactic Acid 1.4 (0.4-2.0) mmol/L Calcium (8.5-10.1) mg/dL Total Bilirubin (0.2-1.0) mg/dL AST (15-37) U/L ALT (12-78) U/L Alkaline Phosphatase (45-117) U/L Total Protein (6.4-8.2) g/dL Albumin (3.4-5.0) g/dL Urine Color Yellow (Yellw/Straw) Urine Clarity Slightly cloudy (Clear) Urine pH 6.0 (5.0-8.5) Ur Specific [place] 1.020 (1.002-1.035) Urine Protein Negative (Neg-Trace) mg/dL Urine Glucose (UA) Negative (Negative) mg/dL Urine Ketones Negative (Negative) mg/dL Urine Occult Blood Small H (Negative) Urine Nitrate Negative (Negative) Urine Bilirubin Negative (Negative) Urine Urobilinogen 0.2 (Less than 2) mg/dL Ur Leukocyte Esterase Moderate H (Negative) Urine RBC 4-15 H (0-3) /hpf Urine WBC 21-50 H (0-5) /hpf Ur Squamous Epith Cells 6-10 H (0-5) /hpf Urine Bacteria Occasional H (None) /hpf Ur Microscopic Review Microscopic reviewed Discharge Plan Physicians Team ED Provider: Everett Stout Primary Care Provider: UNKNOWN, Rxs /Orders / Referrals /Forms Prescriptions: No Action No Known Home Medications RF: 0 Status ED Status: With Doctor
[2018-03-16 03:18] LABS: Bilirubin,Urine Negative (Negative); Clarity,Urine Slightly Cloudy (Clear); Color,Urine Yellow (Yellw/Straw); Glucose,Urine (UA) Negative (Negative); Leukocyte Esterase,Urine Moderate (Negative); Nitrite,Urine Negative (Negative); Urobilinogen,Urine 0.2 mg/dL (Less than 2)
[2018-03-16 03:28] LABS: Bacteria,Urine Occasional /hpf; WBC,Urine 21-50 /hpf (0-5)
[2018-03-16] MEDS ORDERED: HYDROmorphone PF Inj 2 MG/ML Vial IV.PUSH ONE (03:51)
[2018-03-16] MEDS ORDERED: Sod Chloride 0.9% Inj 1,000 ML IV.CONT SCH (04:15)
[2018-03-16] MEDS ORDERED: Acetaminophen 325 MG Tablet PO PRN (05:34)
[2018-03-16] MEDS ORDERED: Bisacodyl 10 MG Supp RECTAL PRN (05:34)
[2018-03-16] MEDS: Sod Chloride 0.9% Inj 1,000 ML IV.CONT SCH ×2 (07:00→17:00)
[2018-03-16] MEDS: HYDROmorphone PF Inj 2 MG/ML Vial IV.PUSH PRN ×4 (08:27→22:12)
--- NOTE | 2018-03-16 10:02 | P.HPIM ---
History of Present Illness Primary Care Physician: UNKNOWN History of Present Illness: This patient is a 32-year-old obese male with a history of genital urinary issues in his early teens. The patient states he had a bladder procedure where they thinned the ellis of his bladder and he has also had a urethral stricture in the past. The patient says over the past few months he has been having difficulties with his penis as the skin around the shaft of his penis has become erythematous and swollen. He has been dealing with the pain over the past 8 weeks however over the past 4 days it has progressively gotten worse. He has been having difficulty with sexual intercourse and obtaining an erection due to the pain. He has been difficult for him to move around because of the pain. It is also painful when he urinates. He denies any fevers or chills. No abdominal pain, no shortness of breath, no diarrhea. Past medical history the patient says he has had genital urinary symptoms in the past including a thickened bladder and had a procedure with a thin the ellis of the bladder as per the patient. Family history significant for coronary artery disease, diabetes mellitus type 2. Inpatient Certification: I certify that the inpatient services were ordered in accordance with Medicare regulations governing the order. This includes certification that hospital inpatient services are reasonable and necessary and in the case of services not specified as inpatient-only under 42 CFR 419.22(n), that they are appropriately provided as inpatient services in accordance to with the 2-midnight benchmark under 43 CFR 412.3(e) Estimated Total Length of Stay (Days): 2 Plans for Post Hospital Care: Not yet determined Review of Systems All other systems reviewed negative except as stated in HPI [facility] - History History Provided By: Patient - Medical History Medical History: Medical History (Last Reviewed 03/01/18 @ 20:46 by Jose Lainez RN) Bipolar 1 disorder Mitral valve prolapse - Surgical History Surgical History: Surgical History (Last Reviewed 03/01/18 @ 20:46 by Jose Lainez RN) History of bladder surgery - Tobacco History Second Hand Smoke Exposure: Yes Tobacco Use In Past 30 Days: No Smoking Status: Never smoker Tobacco Type: Cigarettes - Alcohol History How Often Do You Have a Drink Containing Alcohol: Monthly or less - Substance Use History Substance History: No History of Abuse - Travel History Recent Travel in the [facility] Within the Last 8 Weeks: No Recent Travel Out of the Country Within the Last 8 Weeks: No - Immunization History Tetanus Immunization: <5 Years Tetanus Immunization Year if Known: 2016 Medications and Allergies Active Medications: Active Medications Acetaminophen (Tylenol) 650 mg PO Q4H PRN PRN Reason: Temp > 100.4 Al Hydroxide/Mg Hydroxide (Milk Of Magnesia Liq) 30 ml PO Q12H PRN PRN Reason: Mild Constipation Bisacodyl (Dulcolax Supp) 10 mg RECTAL DAILY PRN PRN Reason: SEVERE CONSITIPATION Hydromorphone HCl (Dilaudid Pf Inj) 1 mg IV.PUSH Q4H PRN PRN Reason: PAIN 6-10 Last Admin: 03/16/18 08:27 Dose: 1 mg Sodium Chloride (Ns Inj) 1,000 mls @ 100 mls/hr IV.CONT .Q10H [facility] Last Admin: 03/16/18 07:00 Dose: 100 mls/hr Lactulose (Lactulose Liq) 30 ml PO DAILY PRN PRN Reason: SEVERE CONSITIPATION Ondansetron HCl (Zofran Inj) 4 mg IV.PUSH Q6H PRN PRN Reason: NAUSEA OR VOMITING Senna/Docusate Sodium (Apple-Colace) 1 tab PO BID [facility]LEY Sennosides (Senokot) 17.2 mg PO Q12H PRN PRN Reason: Moderate Constipation Allergies Allergy/AdvReac Type Severity Reaction Status Date / Time tramadol AdvReac Intermediate SOB, Verified 02/18/18 00:50 TACHYCARDIA, PALPITATIONS Home Medications Medication Instructions Recorded Confirmed Type dexlansoprazole [Dexilant] 60 mg PO DAILY 03/16/18 03/16/18 History Exam Vital signs: Vital Signs 03/16/18 00:22 03/16/18 03:35 03/16/18 08:00 Temperature 97.6 F 98.1 F Pulse Rate 102 H 83 80 Respiratory Rate 17 18 Blood Pressure 164/105 H 112/64 130/60 Pulse Oximetry 98 100 95 Intake & Output 03/15/18 03/16/18 03/16/18 18:59 06:59 18:59 Intake Total 200 / 200 Balance 200 / 200 Weight 165.3 kg Intake: IV 200 / 200 Ancef Inj 1,000 MG In NS Inj 200 / 200 100 ML @ 100 mls/hr IV.SIG ONCE ONE Rx#:[id number] Narrative: General patient in mild distress, complains of pain around his penis. HEENT extraocular movements are intact, clear oropharyngeal mucosa, no JVD Cardiovascular S1-S2 audible, RRR, no murmurs rubs or gallops Respiratory clear to auscultation bilaterally Abdomen soft, obese, nontender, nondistended, normal bowel sounds Genitourinary patient has an excoriation at the head of the penis. There is also inflammation of the foreskin. I was unable to retract the foreskin the patient was having a lot of pain when the foreskin was manipulated. No discharge from the penis on my evaluation. Results - Labs CBC & Chem 7: 03/16/18 01:47 03/16/18 01:47 Labs: Short CBC 03/16/18 Range/Units 01:47 WBC 11.7 H (4.0-11.0) th/mm3 Hgb 15.7 (13.0-17.0) gm/dL Hct 46.7 (39.0-51.0) % Plt Count 260 (150-450) th/mm3 BMP 03/16/18 01:47 Sodium 135 L Potassium 4.0 Chloride 100 Carbon Dioxide 26.3 BUN 13 Creatinine 1.20 Calcium 8.6 Liver Function 03/16/18 Range/Units 01:47 Total Bilirubin 0.3 (0.2-1.0) mg/dL AST 29 (15-37) U/L ALT 63 (12-78) U/L Alkaline Phosphatase 105 (45-117) U/L Albumin 3.8 (3.4-5.0) g/dL Urine 03/16/18 Range/Units 03:06 Urine Color Yellow (Yellw/Straw) Urine Clarity Slightly cloudy (Clear) Urine pH 6.0 (5.0-8.5) Ur Specific [place] 1.020 (1.002-1.035) Urine Protein Negative (Neg-Trace) mg/dL Urine Glucose (UA) Negative (Negative) mg/dL Caprini VTE Risk Assessment Caprini VTE Risk Assessment: No/Low Risk (score <= 1) Caprini Risk Assessment Model: Point Value = 1 Point Value = 2 Point Value = 3 Point Value = 5 Age 41-60 Minor surgery BMI > 25 kg/m2 Swollen legs Varicose veins or History of unexplained or recurrent spontaneous Oral contraceptives or hormone replacement Sepsis (< 1 month) Serious lung disease, including pneumonia (< 1 month) Abnormal pulmonary function Acute myocardial infarction Congestive heart failure (< 1 month) History of inflammatory bowel disease Medical patient at bed rest Age 61-74 Arthroscopic surgery Major open surgery (> 45 min) Laparoscopic surgery (> 45 min) Malignancy Confined to bed (> 72 hours) Immobilizing plaster cast Central venous access Age >= 75 History of VTE Family history of VTE Factor V Leiden Prothrombin [id number] Lupus anticoagulant Anticardiolipin antibodies Elevated serum homocysteine Heparin-induced thrombocytopenia Other congenital or acquired thrombophilia Stroke (< 1 month) Elective arthroplasty Hip, pelvis, or leg fracture Acute spinal cord injury (< 1 month) Prophylaxis Regimen: Total Risk Factor Score Risk Level Prophylaxis Regimen 0-1 Low Early ambulation 2 Moderate Order ONE of the following: *Sequential Compression Device (SCD) *Heparin 5000 units SQ BID 3-4 Higher Order ONE of the following medications: *Heparin 5000 units SQ TID *Enoxaparin/Lovenox 40 mg SQ daily (WT < 150 kg, CrCl > 30 mL/min) *Enoxaparin/Lovenox 30 mg SQ daily (WT < 150 kg, CrCl > 10-29 mL/min) *Enoxaparin/Lovenox 30 mg SQ BID (WT < 150 kg, CrCl > 30 mL/min) AND/OR *Sequential Compression Device (SCD) 5 or more Highest Order ONE of the following medications: *Heparin 5000 units SQ TID (Preferred with Epidurals) *Enoxaparin/Lovenox 40 mg SQ daily (WT < 150 kg, CrCl > 30 mL/min) *Enoxaparin/Lovenox 30 mg SQ daily (WT < 150 kg, CrCl > 10-29 mL/min) *Enoxaparin/Lovenox 30 mg SQ BID (WT < 150 kg, CrCl > 30 mL/min) AND *Sequential Compression Device (SCD) Assessment and Plan - Plan This patient is a 32-year-old obese male with a history of genital urinary issues in his early teens. The patient states he had a bladder procedure where they thinned the ellis of his bladder and he has also had a urethral stricture in the past. The patient says over the past few months he has been having difficulties with his penis as the foreskin around the shaft of his penis has become erythematous and swollen. He has been dealing with the pain over the past 8 weeks however over the past 4 days it has progressively gotten worse. He has been having difficulty with sexual intercourse and obtaining an erection due to the pain. He has been difficult for him to move around because of the pain. 1. Inflammation of the foreskin of the penis, likely paraphimosis The patient presents with the symptoms mentioned above. WBC count is normal. The patient is not having any fevers or chills. He is complaining of dysuria, urinalysis was a bad sample. Urinalysis will be repeated, the patient will be continued on Rocephin for today. Urology has been consulted to evaluate the patient. Continue pain medications as needed. I will follow up the recommendations from urology. 2. Gastroesophageal reflux disease Patient is on a PPI and would like to continue Dexilant which is what he takes at home. The patient's will bring the medication in. No pharmacotherapy for DVT prophylaxis for today as patient will be seen by urology. I will follow-up with the recommendations. Patient is ambulatory. H&P: Quality - VTE Deep Vein Thrombosis/Pulmonary Embolism Present on Admission: No
[2018-03-16] MEDS: Senna/Docusate Sodium 8.6/50 MG Tablet PO SCH ×2 (12:19→22:14)
[2018-03-16 15:15] LABS: Bilirubin,Urine Negative (Negative); Clarity,Urine Slightly Cloudy (Clear); Color,Urine Yellow (Yellw/Straw); Glucose,Urine (UA) Negative (Negative); Leukocyte Esterase,Urine Moderate (Negative); Nitrite,Urine Negative (Negative); Specific Gravity,Urine 1.015 (1.002-1.035); Urobilinogen,Urine 0.2 mg/dL (Less than 2)
[2018-03-16 15:31] LABS: Squamous Epithelial Cell,Urine 0-5 /hpf (0-5)
[2018-03-16 15:32] LABS: Bacteria,Urine Few /hpf
--- NOTE | 2018-03-16 16:26 | P.CONURO ---
History of Present Illness Service: Urology Consult date: 03/16/18 Requesting Physician: Everett Stout Reason for Consult: paraphimosis Primary Care Provider: UNKNOWN Chief Complaint: penile pain History of Present Illness: This patient is a 32-year-old obese male with a history of genital urinary issues in his early teens. The patient states he had a bladder procedure where they thinned the ellis of his bladder and he has also had a urethral stricture in the past. The patient says over the past months or longer he has painful intercourse and his foreskin formes fissures after. It lately became more dense and has white discoloration, it becomes painful to retract foreskin but he can do it Glans and skin is swollen and erythematous and he has some areas of bleeding fissures and balanitis. Urology consulted for it Review of Systems All other systems reviewed negative except as stated in HPI [facility] - History History Provided By: Patient - Medical History Medical History: Medical History (Last Reviewed 03/01/18 @ 20:46 by Jose Lainez RN) Bipolar 1 disorder Mitral valve prolapse - Surgical History Surgical History: Surgical History (Last Reviewed 03/01/18 @ 20:46 by Jose Lainez RN) History of bladder surgery - Tobacco History Second Hand Smoke Exposure: Yes Tobacco Use In Past 30 Days: No Smoking Status: Never smoker Tobacco Type: Cigarettes - Alcohol History How Often Do You Have a Drink Containing Alcohol: Monthly or less - Substance Use History Substance History: No History of Abuse - Travel History Recent Travel in the [place] Within the Last 8 Weeks: No Recent Travel Out of the Country Within the Last 8 Weeks: No - Immunization History Tetanus Immunization: <5 Years Tetanus Immunization Year if Known: 2017 Hx Influenza Vaccine This Season: No Medications and Allergies Active Medications: Active Medications Acetaminophen (Tylenol) 650 mg PO Q4H PRN PRN Reason: Temp > 100.4 Al Hydroxide/Mg Hydroxide (Milk Of Magnesia Liq) 30 ml PO Q12H PRN PRN Reason: Mild Constipation Bisacodyl (Dulcolax Supp) 10 mg RECTAL DAILY PRN PRN Reason: SEVERE CONSITIPATION Hydromorphone HCl (Dilaudid Pf Inj) 1 mg IV.PUSH Q4H PRN PRN Reason: PAIN 6-10 Last Admin: 03/16/18 13:10 Dose: 1 mg Sodium Chloride (Ns Inj) 1,000 mls @ 100 mls/hr IV.CONT .Q10H [facility] Last Admin: 03/16/18 07:00 Dose: 100 mls/hr Ceftriaxone Sodium 1,000 mg/ (Sodium Chloride) 100 mls @ 200 mls/hr IV.SIG Q24H [facility] Last Admin: 03/16/18 15:14 Dose: 200 mls/hr Lactulose (Lactulose Liq) 30 ml PO DAILY PRN PRN Reason: SEVERE CONSITIPATION Ondansetron HCl (Zofran Inj) 4 mg IV.PUSH Q6H PRN PRN Reason: NAUSEA OR VOMITING Senna/Docusate Sodium (Apple-Colace) 1 tab PO BID [facility] Last Admin: 03/16/18 12:19 Dose: Not Given Sennosides (Senokot) 17.2 mg PO Q12H PRN PRN Reason: Moderate Constipation Allergies Allergy/AdvReac Type Severity Reaction Status Date / Time tramadol AdvReac Intermediate SOB, Verified 02/18/18 00:50 TACHYCARDIA, PALPITATIONS Home Medications Medication Instructions Recorded Confirmed Type dexlansoprazole [Dexilant] 60 mg PO DAILY 03/16/18 03/16/18 History Physical Exam Vital Signs - 24 hr 03/16/18 00:22 03/16/18 03:35 03/16/18 08:00 Temperature 97.6 F 98.1 F Pulse Rate 102 H 83 80 Respiratory Rate 18 17 18 Blood Pressure 164/105 H 112/64 130/60 Pulse Oximetry 98 100 95 03/16/18 08:57 03/16/18 11:31 03/16/18 13:40 Temperature 96.1 F L Pulse Rate 76 Respiratory Rate 18 18 18 Blood Pressure 117/61 Pulse Oximetry 95 03/16/18 15:49 Temperature 96.2 F L Pulse Rate 62 Respiratory Rate 18 Blood Pressure 120/69 Pulse Oximetry 96 Physical Exam: GENERAL: This is a well-nourished, well-developed patient, in no apparent distress. Obese HEAD: Atraumatic. Normocephalic. CARDIOVASCULAR: Regular rate and rhythm without murmurs, gallops, or rubs. RESPIRATORY: Clear to auscultation. Breath sounds equal bilaterally. No wheezes , rales, or rhonchi. GASTROINTESTINAL: Abdomen soft, non-tender GENITOURINARY: Pre-paraphimosis changes noted but skin is retractable and painful MUSCULOSKELETAL: Extremities without clubbing, cyanosis, or edema. NEUROLOGICAL: Awake and alert. Laboratory Results - last 24 hr 03/16/18 03/16/18 03/16/18 01:47 01:47 01:47 CBC w Diff Auto diff final WBC 11.7 H RBC 5.36 Hgb 15.7 Hct 46.7 MCV 87.2 MCH 29.3 MCHC 33.6 RDW 12.8 Plt Count 260 MPV 9.6 Neut % (Auto) 61.5 Lymph % (Auto) 26.6 [place] % (Auto) 6.0 Eos % (Auto) 4.3 H Baso % (Auto) 1.6 Neut # (Auto) 7.2 Lymph # (Auto) 3.1 [place] # (Auto) 0.7 Eos # (Auto) 0.5 H Baso # (Auto) 0.2 WBC Differential . Differential Comment . PT 10.1 INR 1.0 Sodium 135 L Potassium 4.0 Chloride 100 Carbon Dioxide 26.3 Anion Gap 9 BUN 13 Creatinine 1.20 Estimated GFR 70 L Random Glucose 88 Lactic Acid Calcium 8.6 Total Bilirubin 0.3 AST 29 ALT 63 Alkaline Phosphatase 105 Total Protein 8.3 H Albumin 3.8 Urine Color Urine Clarity Urine pH Ur Specific [place] Urine Protein Urine Glucose (UA) Urine Ketones Urine Occult Blood Urine Nitrate Urine Bilirubin Urine Urobilinogen Ur Leukocyte Esterase Urine RBC Urine WBC Ur Squamous Epith Cells Urine Bacteria Micro UA Comment Ur Microscopic Review Urine Culture Comments 03/16/18 03/16/18 03/16/18 01:47 03:06 15:10 CBC w Diff WBC RBC Hgb Hct MCV MCH MCHC RDW Plt Count MPV Neut % (Auto) Lymph % (Auto) [place] % (Auto) Eos % (Auto) Baso % (Auto) Neut # (Auto) Lymph # (Auto) [place] # (Auto) Eos # (Auto) Baso # (Auto) WBC Differential Differential Comment PT INR Sodium Potassium Chloride Carbon Dioxide Anion Gap BUN Creatinine Estimated GFR Random Glucose Lactic Acid 1.4 Calcium Total Bilirubin AST ALT Alkaline Phosphatase Total Protein Albumin Urine Color Yellow Yellow Urine Clarity Slightly cloudy Slightly cloudy Urine pH 6.0 6.0 Ur Specific [place] 1.020 1.015 Urine Protein Negative Negative Urine Glucose (UA) Negative Negative Urine Ketones Negative Negative Urine Occult Blood Small H Trace Urine Nitrate Negative Negative Urine Bilirubin Negative Negative Urine Urobilinogen 0.2 0.2 Ur Leukocyte Esterase Moderate H Moderate H Urine RBC 4-15 H 4-15 H Urine WBC 21-50 H 9-20 H Ur Squamous Epith Cells 6-10 H 0-5 Urine Bacteria Occasional H Few H Micro UA Comment Culture indicated Ur Microscopic Review Microscopic reviewed Microscopic reviewed Urine Culture Comments Culture indicated Result Diagrams: 03/16/18 01:47 03/16/18 01:47 Assessment and Plan - Plan 32y.o M with pre paraphimosis changes of foreskin and balanitis Foreskin is retractable - No acute intervention needed - Continue care as per primary team - IV fluids and antbx - Diet can be changed to regular - Check his HgA1C - Pt was instructed to keep foreskin in place and do not retract it - He can be sent home tomorrow with Keflex x 1 week and Lotrisone cream BID x 2weeks - Ibuprofen to manage pain - See as outpt for elective circumcision in a week Discussed Condition With: Dr Isai RODRÍGUEZ attending who agrees with this plan
[2018-03-17] MEDS: Sod Chloride 0.9% Inj 1,000 ML IV.CONT SCH (01:39)
[2018-03-17] MEDS: HYDROmorphone PF Inj 2 MG/ML Vial IV.PUSH PRN (06:43)
[2018-03-17 08:03] LABS: Chloride 101 meq/L (98-107); Potassium 4.2 meq/L (3.5-5.1); Sodium 137 meq/L (136-145)
[2018-03-17 08:06] LABS: Calcium 8.5 mg/dL (8.5-10.1); Glucose,Random 94 mg/dL (74-106)
[2018-03-17 08:07] LABS: Anion Gap 7 meq/L (5-15); Blood Urea Nitrogen 10 mg/dL (7-18); Carbon Dioxide 29.3 meq/L (21.0-32.0); Magnesium 2.2 mg/dL (1.5-2.5)
[2018-03-17 08:09] LABS: Glomerular Filtration Rate Greater Than 89 mL/min (>89)
[2018-03-17] MEDS: Senna/Docusate Sodium 8.6/50 MG Tablet PO SCH (10:52)
--- NOTE | 2018-03-17 13:16 | P.PN ---
Subjective Interval history: Nursing denies any acute deteriorations overnight. Patient was seen by urology yesterday. denies any burning with urination. Physical Exam Vital signs: Vital Signs 03/16/18 13:40 03/16/18 15:49 03/16/18 17:58 Temperature 96.2 F L Pulse Rate 62 Respiratory Rate 18 18 18 Blood Pressure 120/69 Pulse Oximetry 96 03/16/18 20:00 03/17/18 00:00 03/17/18 07:13 Temperature 97.7 F 96.5 F L Pulse Rate 89 60 Respiratory Rate 18 18 18 Blood Pressure 119/67 102/60 Pulse Oximetry 89 L 96 03/17/18 08:00 03/17/18 12:00 Temperature 96.8 F L 96.3 F L Pulse Rate 75 80 Respiratory Rate 16 18 Blood Pressure 124/81 132/83 Pulse Oximetry 95 95 Intake & Output 03/16/18 03/17/18 03/17/18 18:59 06:59 18:59 Intake Total 1400 / 1400 2480 / 2480 300 / 300 Output Total 1000 / 1000 Balance 1400 / 1400 1480 / 1480 300 / 300 Weight 160.1 kg 160.1 kg Intake: IV 1100 / 1100 2000 / 2000 NS Inj 1,000 ML @ 100 mls/hr IV 1000 / 1000 1000 / 1000 .CONT .Q10H [facility] Rx#:[id number] Rocephin Inj 1,000 MG In NS Inj 100 / 100 100 ML @ 200 mls/hr IV.SIG Q24H [facility] Rx#:[id number] Oral 300 / 300 480 / 480 300 / 300 Output: Urine 1000 / 1000 Other: # Voids 4 1 1 # Bowel Movements 0 Weight On Admission 160.1 kg Narrative: Inflamed retracted glans penis within foreskin with steroid cream applied, scrotum appears to have normal color, unremarkable Otherwise patient is in no acute distress Awake alert, no acute distress, labored breathing Results - Labs CBC & Chem 7: 03/16/18 01:47 03/17/18 07:30 Laboratory Results - last 24 hr 03/16/18 03/17/18 15:10 07:30 Sodium 137 Potassium 4.2 Chloride 101 Carbon Dioxide 29.3 Anion Gap 7 BUN 10 Creatinine 0.94 Estimated GFR Greater than 89 Random Glucose 94 Calcium 8.5 Magnesium 2.2 Urine Color Yellow Urine Clarity Slightly cloudy Urine pH 6.0 Ur Specific [place] 1.015 Urine Protein Negative Urine Glucose (UA) Negative Urine Ketones Negative Urine Occult Blood Trace Urine Nitrate Negative Urine Bilirubin Negative Urine Urobilinogen 0.2 Ur Leukocyte Esterase Moderate H Urine RBC 4-15 H Urine WBC 9-20 H Ur Squamous Epith Cells 0-5 Urine Bacteria Few H Micro UA Comment Culture indicated Ur Microscopic Review Microscopic reviewed Urine Culture Comments Culture indicated Microbiology 03/16/18 15:10 Clean Catch Urine Urine Culture - Preliminary No growth in 24 hours Assessment and Plan - Plan Mild balanitis with paraphimosispatient will be discharged on oral antibiotics and topical steroid cream per urology. Patient has been maximal benefit of hospitalization is clinically stable for discharge.
== END 2018-03-17 15:06 | disposition home or self-care (01) ==
LOC: PHED 00:14 → PHEDA 05:37 → PH3 06:37
PROVIDERS: ADMIT Hospitalist; ATTEND Hospitalist